=== PATIENT | female | born 1965 | race Two or more races ===

== ENCOUNTER 2017-04-27 16:56 | Emergency (ER) | payer SELFPAY ==
[2017-04-27 18:33] LABS: ABSOLUTE BASOPHILS # (AUTO) 0.1 10^3/uL (0.0-0.2); BASOPHILS % (AUTO) 0.5 % (0-2); HEMATOCRIT 41.6 % (36.0-47.0); HEMOGLOBIN 14.1 g/dL (12.0-15.5); HGB HCT DIFFERENCE 0.7; MEAN CORPUSCULAR HEMOGLOBIN 28.7 pg (27.0-33.4); MEAN CORPUSCULAR HGB CONC 33.8 g/dL (32.0-36.0); MEAN CORPUSCULAR VOLUME 85 fl (80-97); MONOCYTES % (AUTO) 5.3 % (3-13); RED CELL DISTRIBUTION WIDTH 14.1 % (11.5-14.0); SEGMENTED NEUTROPHILS % (AUTO) 83.2 % (42-78)
--- NOTE | 2017-04-27 18:47 | EKG REPORT ---
SEVERITY:- NORMAL ECG - SINUS RHYTHM : Confirmed by: Ned Zamora MD 27-Apr-2017 18:46:55
[2017-04-27 18:50] LABS: ALANINE AMINOTRANSFERASE 28 U/L (9-52); ALBUMIN 4.9 g/dL (3.5-5.0); ALCOHOL < 10 mg/dL (NONE DETECTED); ALKALINE PHOSPHATASE 114 U/L (38-126); ANION GAP 19 (5-19); ASPARTATE AMINO TRANSFERASE 30 U/L (14-36); BILIRUBIN,DIRECT 0.4 mg/dL (0.0-0.4); BILIRUBIN,TOTAL 0.7 mg/dL (0.2-1.3); BLOOD UREA NITROGEN 22 mg/dL (7-20); CALCIUM 11.2 mg/dL (8.4-10.2); CARBON DIOXIDE 20 mmol/L (22-30); CHLORIDE 105 mmol/L (98-107); CREATININE RESULT 0.86 mg/dL (0.52-1.25); GLUCOSE 98 mg/dL (75-110); MAGNESIUM 1.5 mg/dL (1.6-2.3); POTASSIUM 4.2 mmol/L (3.6-5.0); SODIUM 143.8 mmol/L (137-145); TOTAL PROTEIN 8.4 g/dL (6.3-8.2)
[2017-04-27] MEDS ORDERED: HALOPERIDOL 5 MG TABLET PO ONE (18:51)
[2017-04-27] MEDS ORDERED: BENZTROPINE MESYLATE 1 MG TABLET PO ONE (18:52)
--- NOTE | 2017-04-27 19:16 | ER Document Report ---
ED Psych Disorder / Suicide <NILSSTEVEN Rodríguez - Last Filed: 04/28/17 00:51> - General Mode of Arrival: Ambulatory Information source: Patient TRAVEL OUTSIDE OF THE [place] IN LAST 30 DAYS: No - HPI Onset: Just prior to arrival <TREMAYNEDENIPOLO - Last Filed: 04/28/17 14:10> - General Chief Complaint: Psych Problem Stated Complaint: ALTERED MENTAL STATUS Time Seen by Provider: 04/27/17 18:50 Notes: Patient is an IVC'd 52 year old female presenting to the emergency department via EMS for confusion. Patient was found wandering and police were called. Police then proceeded to call EMS. Patient states that she has cancer and only a few days left to live. Patient is clearly disorganized and confused. Patient states that she lives with her son who was just recently deployed. Developmental Mathematics Instructor states that they are unable to understand much due to her current mental state. (RAKEL CASPER) - Related Data Allergies/Adverse Reactions: No Known Allergies Allergy (Unverified 04/28/17 04:05) Past Medical History - General Information source: Patient - Social History Smoking Status: Unknown if Ever Smoked Chew tobacco use (# tins/day): No Frequency of alcohol use: None Drug Abuse: None Family History: None <RAKEL CASPER - Last Filed: 04/28/17 14:10> Review of Systems - Review of Systems Constitutional: No symptoms reported EENT: No symptoms reported Cardiovascular: No symptoms reported Respiratory: No symptoms reported Gastrointestinal: No symptoms reported Genitourinary: No symptoms reported Female Genitourinary: No symptoms reported Musculoskeletal: No symptoms reported Skin: No symptoms reported Hematologic/Lymphatic: No symptoms reported Neurological/Psychological: See HPI, Confusion <RAKEL CASPER - Last Filed: 04/28/17 14:10> Physical Exam - General General appearance: Appears well, Alert In distress: None - HEENT Head: Normocephalic, Atraumatic Eyes: Normal Conjunctiva: Normal Pupils: PERRL - Respiratory Respiratory status: No respiratory distress Breath sounds: Normal - Cardiovascular Rhythm: Regular Heart sounds: Normal auscultation - Back Back: Normal - Extremities General upper extremity: Normal inspection, Normal ROM General lower extremity: Normal inspection, Normal ROM - Neurological Neuro grossly intact: Yes Cognition: Normal Orientation: AAOx4 Faye Coma Scale Eye Opening: Spontaneous [place]aye Coma Scale Verbal: Oriented [place] Coma Scale Motor: Obeys Commands [place] Coma Scale Total: 15 Speech: Normal - Psychological Associated symptoms: Normal affect, Normal mood - Skin Skin Temperature: Warm Skin Moisture: Dry Skin Color: Normal <RAKEL CASPER - Last Filed: 04/28/17 14:10> - Vital signs Vitals: Temp Pulse Resp BP Pulse Ox 98.3 F 98 18 157/86 H 99 04/27/17 18:56 04/27/17 18:56 04/27/17 18:56 04/27/17 18:56 04/27/17 18:56 Course - Laboratory Result Diagrams: 04/27/17 18:10 04/27/17 18:10 - Diagnostic Test Radiology reviewed: Reports reviewed - See the renal stone protocol CT scan report - EKG Interpretation by Mi EKG shows normal: Sinus rhythm, [place], Intervals, QRS Complexes, ST-T Waves Rate: Normal - 92 Rhythm: NSR - Transfer of Care Care transferred to following provider: Dr. Villatoro <STEVEN WRAY - Last Filed: 04/28/17 00:51> - Laboratory Result Diagrams: 04/27/17 18:10 04/27/17 18:10 <RAKEL CASPER - Last Filed: 04/28/17 14:10> - Re-evaluation Re-evalutation: 04/28/17 00:48 The patient was complaining some abdominal and back pain, and was noted to have hematuria so a CT renal scan was done. This showed a 2.8 cm gallstone without signs of inflammation. There were also bilateral renal lesions measuring up to 3.1 cm each. The radiologist reported he could not exclude neoplasm and recommend comparison with prior studies, or contrasted MRI or CT of the kidneys. Due to the acute psychosis and lack of any real past medical history on this patient, will get a CT scan of the brain at this time. (STEVEN WRAY) - Vital Signs Vital signs: Temp Pulse Resp BP Pulse Ox 99.6 F 89 16 146/74 H 96 04/28/17 04:00 04/28/17 04:00 04/28/17 04:00 04/28/17 04:00 04/28/17 04:00 - Laboratory Laboratory results interpreted by me: 04/27/17 04/27/1704/27/17 18:10 18:10 22:30 WBC 18.0 H RDW 14.1 H Seg Neutrophils % 83.2 H Lymphocytes % 11.0 L Absolute Neutrophils 15.0 H Carbon Dioxide 20 L BUN 22 H Calcium 11.2 H Magnesium 1.5 L Total Protein 8.4 H Urine Ketones 20 H - Transfer of Care Notes: 04/28/17 00:51 Patient will need further investigation of her past medical history prior to coming up to this area to live with her son. If unable to obtain prior renal studies, the patient will need contrasted CT or MRI of the kidneys. (STEVEN WRAY) Discharge <STEVEN WRAY - Last Filed: 04/28/17 00:51> <RAKEL CASPER - Last Filed: 04/28/17 14:10> - Discharge Clinical Impression: Manic psychosis, Kidney lesion, [place], bilateral Hematuria Qualifiers: Hematuria type: asymptomatic microscopic Qualified Code(s): R31.21 - Asymptomatic microscopic hematuria Condition: Fair Disposition: PSYCH HOSP/UNIT Scribe Attestation: 04/27/17 19:36 I personally performed the services described in the documentation, reviewed and edited the documentation which was dictated to the scribe in my presence, and it accurately records my words and actions. (STEVEN WRAY) Scribe Documentation - Scribe Written by Natan:: Natan Kirk,04/27/2017 19:26 acting as scribe for :: Nils <RAKEL CASPER - Last Filed: 04/28/17 14:10>
[2017-04-27 22:57] LABS: APPEARANCE,URINE SLIGHTLY-CLOUDY; BILIRUBIN,URINE NEGATIVE (NEGATIVE); GLUCOSE, URINE NEGATIVE (NEGATIVE); KETONES,URINE 20 mg/dL (NEGATIVE); LEUKOCYTE ESTERASE,URINE NEGATIVE (NEGATIVE); NITRITE,URINE NEGATIVE (NEGATIVE); PROTEIN,URINE NEGATIVE (NEGATIVE); URINE SPECIFIC GRAVITY 1.029; UROBILINOGEN,URINE NEGATIVE mg/dL (<2.0)
[2017-04-27 23:07] LABS: URINE BARBITURATES SCREEN NEGATIVE; URINE METHADONE SCREEN NEGATIVE; URINE OPIATES LOW NEGATIVE; URINE PHENCYCLIDINE SCREEN NEGATIVE
[2017-04-27] MEDS ORDERED: ACETAMINOPHEN 325 MG TABLET PO ONE (23:15)
--- NOTE | 2017-04-28 00:34 | RADIOLOGY REPORT (SQ) ---
EXAM DESCRIPTION: CT LTD RENAL STONE PROTOCOL ON COMPLETED DATE/TIME: 04/28/2017 12:19 am REASON FOR STUDY: abd pain, back pain, hematuria COMPARISON: None. TECHNIQUE: CT scan of the abdomen and pelvis performed without intravenous or oral contrast. Images reviewed with lung, soft tissue, and bone windows. Reconstructed coronal and sagittal MPR images revi ewed. All images stored on PACS. All CT scanners at this facility use dose modulation, iterative reconstruction, and/or weight based d osing when appropriate to reduce radiation dose to as low as reasonably achievable (ALARA). [facility]: Dose Right [facility]: CareDose [facility]: Dose Right [facility]: Teradose 4D [facility]: [employer] RADIATION DOSE: Up-to-date CT equipment and radiation dose reduction techniques were employed. CTDIv ol: 10.3 mGy. DLP: 534 mGy-cm.mGy. LIMITATIONS: None. FINDINGS: LOWER CHEST: No significant findings. No nodules or infiltrates. Small coronary arterial calcification. Small hiatal hernia. NON-CONTRASTED LIVER, SPLEEN, ADRENALS: Evaluation limited by lack of IV contrast. No identified sign ificant masses. PANCREAS: No masses. No peripancreatic inflammatory changes. GALLBLADDER: 2.8 cm gallstone. RIGHT KIDNEY AND URETER: Severe atrophy. Indeterminate lesions measure up to 1.6 cm each, not defini tively characterized. LEFT KIDNEY AND URETER: Severe atrophy. Indeterminate lesions measure up to 3.2 cm each not definiti vely characterize. Right pelvic kidney: No complication, no suspicious mass, no hydronephrosis -hydroureter. AORTA AND RETROPERITONEUM: No aneurysm. No retroperitoneal masses or adenopathy. BOWEL AND PERITONEAL CAVITY: No obvious masses or inflammatory changes. No free fluid. Gastric sutur e. APPENDIX: Normal. PELVIS, BLADDER, AND ABDOMINAL WALL:No abnormal masses. No free fluid. Bladder normal. BONES: No significant findings. OTHER: No other significant finding. IMPRESSION: 1. Indeterminate bilateral renal lesions measure up to 3.1 cm each. Cannot exclude kaila plasm. Comparison with prior exams or contrast MRI/ CT of the kidneys recommended. 2. Severe bilat eral renal atrophy. Right pelvic kidney. 3. Cholelithiasis. COMMENT: Quality ID # [id number]: Final reports with documentation of one or more dose reduction techniques (e.g., Automated exposure control, adjustment of the mA and/or kV according to patient size, use of iterative reconstruction technique) TECHNICAL DOCUMENTATION: JOB ID: [id number]- All Rights Reserved
--- NOTE | 2017-04-28 01:46 | RADIOLOGY REPORT (SQ) ---
EXAM DESCRIPTION: CT HEAD WITHOUT COMPLETED DATE/TIME: 04/28/2017 1:13 am REASON FOR STUDY: bilat renal lesions, acutely psychotic COMPARISON: None. TECHNIQUE: Axial images acquired through the brain without intravenous contrast. Images reviewed wi th bone, brain and subdural windows. Images stored on PACS. All CT scanners at this facility use dose modulation, iterative reconstruction, and/or weight based d osing when appropriate to reduce radiation dose to as low as reasonably achievable (ALARA). [facility]: Dose Right [facility]: CareDose [facility]: Dose Right [facility]: Teradose 4D [facility]: [employer] RADIATION DOSE: Up-to-date CT equipment and radiation dose reduction techniques were employed. CTDIv ol: 64.6 mGy. DLP: 1163 mGy-cm. mGy. LIMITATIONS: None. FINDINGS: VENTRICLES: Normal size and contour. CEREBRUM: No masses. No hemorrhage. No midline shift. No evidence for acute infarction. Normal gra y/white matter differentiation. No areas of low density in the white matter. CEREBELLUM: No masses. No hemorrhage. No alteration of density. No evidence for acute infarction. EXTRAAXIAL SPACES: No fluid collections. No masses. Atherosclerosis. ORBITS AND GLOBE: No intra- or extraconal masses. Normal contour of globe without masses. CALVARIUM: No fracture. PARANASAL SINUSES: No fluid or mucosal thickening. SOFT TISSUES: No mass or hematoma. OTHER: No other significant finding. IMPRESSION: No acute findings. Atherosclerosis. EVIDENCE OF ACUTE STROKE: NO. COMMENT: Quality ID # [id number]: Final reports with documentation of one or more dose reduction techniques (e.g., Automated exposure control, adjustment of the mA and/or kV according to patient size, use of iterative reconstruction technique) TECHNICAL DOCUMENTATION: JOB ID: [id number] [employer]- All Rights Reserved
[2017-04-28] MEDS ORDERED: HALOPERIDOL LACTATE INJ 5 MG/1 ML VIAL IV ONE (06:11)
[2017-04-28] MEDS ORDERED: DIPHENHYDRAMINE HCL 50 MG/ML VIAL IV ONE (06:12)
[2017-04-28] MEDS ORDERED: CLONIDINE HCL 0.1 MG TABLET PO PRN (09:52)
[2017-04-28] MEDS ORDERED: HALOPERIDOL 5 MG TABLET PO SCH (10:00)
[2017-04-28] MEDS: DIVALPROEX SODIUM 250 MG TAB.SR.24H PO SCH ×2 (10:16→18:09)
[2017-04-28] MEDS: BUSPIRONE HCL 10 MG TABLET PO SCH ×2 (10:16→18:10)
[2017-04-28] MEDS: BENZTROPINE MESYLATE 1 MG TABLET PO SCH (10:16)
--- NOTE | 2017-04-28 10:42 | ER Document Report ---
Doctor's Note Notes: 04/28/17 10:41 This is a 43-year-old female patient with prior history of kidney transplant. Reportedly stopped taking her rejection medications several days ago. Has depression. Has social issues. Please see previous providers note is including mental health note. Will start her on different medications. It is possible the patient will need to be admitted. Will review labs and reassess. 04/28/17 10:53 Consulted with the hospitalist. Understands that patient has some significant issues which need to be addressed. If the core driller is comfortable consulting he may consider admitting her for acute delirium, leukocytosis and restarting of her rejection medications. Will consult with core driller at this time. 04/28/17 11:55 Did speak with the core driller, Dr. Mercado who is more than happy to consult if needed. Consulted the hospitalist. She (Dr. Golden) does not feel patient needs to be admitted at this time. I am asking for medicine consult then since she can't be admitted. She needs an division sergeant or someone specializing in the management of these medications for kidney rejection to take ownership in her medication prescriptions. Will attempt to get all the medications from her previous pharmacy. Awaiting consult by the division sergeant at this time. I am also repeating the CBC and the chemistry 04/28/17 12:36
[2017-04-28 17:48] LABS: HEMATOCRIT 39.2 % (36.0-47.0); HEMOGLOBIN 13.2 g/dL (12.0-15.5); HGB HCT DIFFERENCE 0.4; MEAN CORPUSCULAR HEMOGLOBIN 28.7 pg (27.0-33.4); MEAN CORPUSCULAR HGB CONC 33.7 g/dL (32.0-36.0); MEAN CORPUSCULAR VOLUME 85 fl (80-97); RED BLOOD COUNT 4.61 10^6/uL (3.72-5.28); RED CELL DISTRIBUTION WIDTH 13.6 % (11.5-14.0); WHITE BLOOD COUNT 16.3 10^3/uL (4.0-10.5)
[2017-04-28 17:57] LABS: ANION GAP 14 (5-19); BLOOD UREA NITROGEN 10 mg/dL (7-20); CALCIUM 10.8 mg/dL (8.4-10.2); CARBON DIOXIDE 22 mmol/L (22-30); CHLORIDE 105 mmol/L (98-107); CREATININE RESULT 0.67 mg/dL (0.52-1.25); GLUCOSE 166 mg/dL (75-110); POTASSIUM 3.8 mmol/L (3.6-5.0); SODIUM 140.6 mmol/L (137-145)
--- NOTE | 2017-04-29 01:51 | PDOC CONSULTATION ---
Consultation Consult Date: 04/28/17 Attending physician:: PRASANNA BOURNE Consult reason:: Altered mental status History of Present Illness Admission Date/PCP: Consult date April 28, 2017 History of Present Illness: AMAURY DROADO is a 52 year old female who was brought to ED via ambulance for the purpose to be evaluated since was found wandering down the streets in her neighborhood. Patient states that she used to live in [place] until recently. She sold her house and moved to this area to be with her son. She spent a couple of days in a hotel and has been in her son's house for the past 3 days. Her son had been deployed and was recently taken by the police for an unknown reason. She has a history of kidney transplant but is not aware what precipitated for her to undergo surgery. She has not been taking her regular medications for the past couple of days. She does not have a local doctor yet but has enough medications to last 2 weeks. She was seen at a local clinic and was evaluated. After the exams she was told that has cancer all over her body and that she is expected to soon. Her daughter was with her during those visits. She denies having been wandering but that she likes to walk and that appears that the people in this area does like to do that. Patient denies suicidal or homicidal thoughts. Past Medical History Cardiac Medical History: Reports: Coronary Artery Disease, Hypertension Denies: Congestive Heart Failure Pulmonary Medical History: Reports: None EENT Medical History: Reports: None Neurological Medical History: Reports: None Endocrine Medical History: Reports: None Renal/ Medical History: Reports: Chronic Kidney Disease Malignancy Medical History: Reports: Other Malignancy History Note: claims metastatic cancer with unknown source Past Surgical History Past Surgical History: Reports: Other - kidney transplant Social History Information Source: Patient Smoking Status: Never Smoker Frequency of Alcohol Use: None Drugs: None Family History Family History: Reviewed & Not Pertinent. denies: None Parental Family History Reviewed: Yes Children Family History Reviewed: Yes Sibling(s) Family History Reviewed.: Yes Medication/Allergy Allergies/Adverse Reactions: No Known Allergies Allergy (Unverified 04/28/17 04:05) Review of Systems Constitutional: PRESENT: as per HPI Eyes: ABSENT: visual disturbances Ears: ABSENT: hearing changes Cardiovascular: ABSENT: edema, orthropnea, palpitations Respiratory: ABSENT: cough, dyspnea Gastrointestinal: ABSENT: nausea, vomiting Genitourinary: ABSENT: dysuria, hematuria Musculoskeletal: ABSENT: deformity, joint swelling Neurological: ABSENT: focal weakness Psychiatric: ABSENT: hallucinations, homidical ideation, suicidal ideation Physical Exam Vital Signs: Temp Pulse Resp BP Pulse Ox 98.9 F 91 20 138/75 H 96 04/28/17 19:15 04/28/17 19:15 04/28/17 19:15 04/28/17 19:15 04/28/17 19:15 General appearance: PRESENT: no acute distress, cooperative Head exam: PRESENT: atraumatic, normocephalic Eye exam: PRESENT: EOMI, PERRLA Mouth exam: PRESENT: moist, neck supple Neck exam: PRESENT: full ROM. ABSENT: JVD, lymphadenopathy, meningismus, tenderness, thyromegaly Respiratory exam: PRESENT: clear to auscultation darinel Cardiovascular exam: PRESENT: RRR. ABSENT: diastolic murmur, systolic murmur Vascular exam: PRESENT: normal capillary refill GI/Abdominal exam: PRESENT: normal bowel sounds, soft. ABSENT: organolmegaly, tenderness Extremities exam: PRESENT: full ROM. ABSENT: clubbing, joint swelling, pedal edema Musculoskeletal exam: PRESENT: ambulatory Neurological exam: PRESENT: alert, awake, oriented to person, oriented to place , oriented to situation Psychiatric exam: PRESENT: appropriate affect, normal mood Skin exam: PRESENT: intact, normal color Results Laboratory Results: 04/28/17 17:17 04/28/17 17:17 04/28/17 04/28/17 17:17 17:17 WBC 16.3 H RBC 4.61 Hgb 13.2 Hct 39.2 MCV 85 MCH 28.7 MCHC 33.7 RDW 13.6 Plt Count 219 Sodium 140.6 Potassium 3.8 Chloride 105 Carbon Dioxide 22 Anion Gap 14 BUN 10 Creatinine 0.67 Est GFR ( Amer) > 60 Est GFR (Non-Af Amer) > 60 Glucose 166 H Calcium 10.8 H Impressions: Limited or Localized CT 04/27/17 23:15 IMPRESSION: 1. Indeterminate bilateral renal lesions measure up to 3.1 cm each. Cannot exclude neoplasm. Comparison with prior exams or contrast MRI/ CT of the kidneys recommended. 2. Severe bilateral renal atrophy. Right pelvic kidney. 3. Cholelithiasis. Head CT 04/28/17 00:46 IMPRESSION: No acute findings. Atherosclerosis. EVIDENCE OF ACUTE STROKE: NO. Assessment & Plan - Diagnosis (1) Leukocytosis Is this a current diagnosis for this admission?: Yes Plan: Noted improvement on counts since initially seen in ED. History and review of symptoms not worrisome. In my opinion her presentation does not warrant admission to follow up an abnormal lab value (2) Hypomagnesemia syndrome Plan: Recommend to replace while in ED and awaiting disposition (3) HTN (hypertension) Qualifiers: Hypertension type: essential hypertension Qualified Code(s): I10 - Essential (primary) hypertension Is this a current diagnosis for this admission?: Yes Plan: recommend to restart outpatient medications (4) Status post kidney transplant Is this a current diagnosis for this admission?: Yes Plan: Recommend to restart anti rejections drugs (5) Altered mental status, unspecified Qualifiers: Altered mental status type: unspecified Qualified Code(s): R41.82 - Altered mental status, unspecified Is this a current diagnosis for this admission?: Yes Plan: At the time of my evaluation patient answers appropriately. I had communicated with her in [place] at all time. Recommend for case management to get involved to assist with disposition back home. I do not think she will be a good candidate for psychiatric commitment since not suicidal of homicidal. I do not think patient will benefit from admission to the hospital since minor blood work abnormalities can be easily corrected in ED - Time Time Spent: 30 to 50 Minutes Medications reviewed and adjusted accordingly: No Anticipated discharge: Home Within: within 48 hours
[2017-04-29] MEDS: BUSPIRONE HCL 10 MG TABLET PO SCH ×2 (09:31→18:15)
[2017-04-29] MEDS: BENZTROPINE MESYLATE 1 MG TABLET PO SCH (09:31)
[2017-04-29] MEDS: DIVALPROEX SODIUM 250 MG TAB.SR.24H PO SCH ×2 (09:31→18:15)
--- NOTE | 2017-04-29 14:11 | RADIOLOGY REPORT (SQ) ---
EXAM DESCRIPTION: U/S RETROPERITON (RENAL/AORTA) COMPLETED DATE/TIME: 04/29/2017 1:33 pm REASON FOR STUDY: attn: [place] kidney cysts COMPARISON: CT abdomen pelvis 04/28/2017 TECHNIQUE: Dynamic and static grayscale images acquired of the kidneys and bladder and recorded on P ACS. Additional selected color Doppler and spectral images recorded. LIMITATIONS: None. FINDINGS: Patient has a right lower quadrant transplant kidney, which is 11.1 cm in length, with nor mal cortical thickness and echogenicity. No hydronephrosis. Normal right lower quadrant transplant kidney arterial Doppler, with normal velocities and spectral waveforms. Both ruby kidneys are small and diffusely echogenic. The right ruby kidney is 7.3 cm size, with multiple anechoic cysts less than 2 cm in size. These cysts are hyperdense on CT from hemorrhage or proteinaceous material. No worrisome ultrasound featur es. The left ruby kidney measures 6.6 cm in size, with multiple anechoic less than 3 cm in size. The c ysts are hyperdense on CT from hemorrhage or proteinaceous material. No worrisome ultrasound feature s. Urinary bladder is unremarkable. Incidental finding of a 2.5 cm shadowing stone in the gallbladder IMPRESSION: Normal right lower quadrant transplant kidney. Tiny ruby kidneys bilaterally with multiple cysts. TECHNICAL DOCUMENTATION: JOB ID: [id number] [employer]- All Rights Reserved
[2017-04-29] MEDS ORDERED: FUROSEMIDE 40 MG TABLET PO PRN (15:13)
[2017-04-29] MEDS ORDERED: DAPSONE 25 MG TABLET PO SCH (15:15)
[2017-04-29] MEDS ORDERED: (PENDING PHARMACY ID) (Mycophenolate Sodium [Mycophenolic Acid] 360 MG) PO SCH (18:00)
[2017-04-29] MEDS ORDERED: MYCOPHENOLATE SODIUM 360 MG PO SCH (18:00)
[2017-04-29] MEDS ORDERED: (PENDING PHARMACY ID) (Carvedilol [Carvedilol] 12.5 MG) PO SCH (18:00)
--- NOTE | 2017-04-29 19:05 | ER Document Report ---
Doctor's Note Notes: 04/29/17 18:56 Have spent considerable time today sorting out patient's medical history and trying to establish what is wrong with her and how we can disposition her. I spoke to the daughter in [place] at [phone] around midday. Daughter says the patient moved here to [place] about a month ago and bought a house here. Her son apparently lives with her. He is in the and we are not sure if but we think he may be deployed at this time. We have not been able to contact him. Daughter says the patient has been admitted to psychiatric hospitals of 3 times in the last few months, the last admission being in January of this year. She was admitted for depression and psychosis. Daughter does not know if patient takes any medications for these conditions. Patient told someone who recorded in the chart that she has "cancer all over". Daughter says she knows nothing about any cancer and does not think that is true. Called telephone number that we obtain for the son, there was no answer but I left a message asking him to call me here at the hospital. I have not heard from him. This evening, I got a call back from the patient's former doctor in [place], a Dr. Guardado at [phone] and he went over the patient's past history and he to says he is never heard of her having any cancer. Patient is a renal transplant patient, 5 or 6 years ago. 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 Patient is . He last saw this patient in August 2016 and she was doing fine. He does not know of any psychiatric disease. Does not know of any cancer. Patient's noncontrasted CT of the abdomen looking for stones from when she was admitted yesterday, showed lesions of the kidneys, worrisome for neoplasm. I spoke with Dr. Ludwig and she recommended we do ultrasounds, which were done and she says that the lesions on the kidneys are cysts. Therefore, there is no evidence in our testing that the patient has any cancer either. We were able to locate her antirejection medications and she is to start them this evening. I will be returning to the same shift tomorrow and we will work further on the disposition of this patient. We were not able to reach the son, but were able to reach his commanding officer who says that we can likely get up with the son tomorrow. Denilson Givens MD
[2017-04-29] MEDS: MYCOPHENOLATE SODIUM 180 MG PO SCH (21:20)
[2017-04-29] MEDS: CLONIDINE HCL 0.1 MG TABLET PO SCH (21:21)
[2017-04-29] MEDS: CARVEDILOL 12.5 MG TABLET PO SCH (21:21)
[2017-04-29] MEDS: NIFEDIPINE 30 MG TAB.ER.24 PO SCH (21:22)
[2017-04-29] MEDS: TACROLIMUS ANHYDROUS 1 MG CAPSULE PO SCH (21:23)
[2017-04-29] MEDS ORDERED: (PENDING PHARMACY ID) (Nifedipine [Nifedipine Er] 90 MG) PO SCH (22:00)
[2017-04-30] MEDS ORDERED: METOCLOPRAMIDE HCL ORAL SOLN 10 MG/10 ML UDCUP PO ONE (00:21)
[2017-04-30] MEDS ORDERED: MAG HYDROX/AL HYDROX/SIMETH SUSP 30 ML UDCUP PO ONE (00:21)
[2017-04-30] MEDS ORDERED: LIDOCAINE 2% VISCOUS SOLN 20 ML UDCUP PO ONE (00:21)
[2017-04-30] MEDS ORDERED: LISINOPRIL 5 MG TABLET PO SCH (08:00)
[2017-04-30] MEDS: CLONIDINE HCL 0.1 MG TABLET PO SCH ×3 (08:24→22:13)
[2017-04-30] MEDS: NIFEDIPINE 30 MG TAB.ER.24 PO SCH (09:00)
[2017-04-30] MEDS: TACROLIMUS ANHYDROUS 1 MG CAPSULE PO SCH ×2 (09:01→22:12)
[2017-04-30] MEDS: BUSPIRONE HCL 10 MG TABLET PO SCH (09:02)
[2017-04-30] MEDS: DIVALPROEX SODIUM 250 MG TAB.SR.24H PO SCH (09:03)
[2017-04-30] MEDS: LANSOPRAZOLE 30 MG TAB.RAP.DR PO SCH (09:03)
[2017-04-30] MEDS: CARVEDILOL 12.5 MG TABLET PO SCH ×2 (09:03→22:13)
[2017-04-30] MEDS: MYCOPHENOLATE SODIUM 180 MG PO SCH ×2 (09:05→22:12)
[2017-04-30] MEDS ORDERED: (PENDING PHARMACY ID) (Esomeprazole Magnesium [Esomeprazole Magnesium] 40 MG) PO SCH (10:00)
--- NOTE | 2017-04-30 10:36 | ER Document Report ---
Doctor's Note Notes: 04/30/17 10:34 Rounds: Chart reviewed and patient interviewed. Patient seems to be better than yesterday. Conversation is more focused and appropriate. Bargained with patient to have her take the Depakote that has been ordered. I agreed to drop her morning dose of nifedipine 90 mg XR which she says makes her sleepy and she only wants to take it at nighttime, which I have now ordered that way. We are still looking at placement of this patient because we have found out that her son, who lives with her, is out on deployment and will be out for the next 4-6 weeks. We do not feel the patient is capable functioning on her own, independently, at this time. Failure pneumonia vital signs have remained stable. Her blood pressure is doing very well. No new labs to report. Patient appears to be medically stable for transfer or discharge. Denilson Givens MD
[2017-04-30 13:46] LABS: ABSOLUTE BASOPHILS # (AUTO) 0.1 10^3/uL (0.0-0.2); ABSOLUTE EOSINOPHILS # (AUTO) 0.1 10^3/uL (0.0-0.6); ABSOLUTE LYMPHOCYTES (AUTO) 1.7 10^3/uL (0.5-4.7); ABSOLUTE NEUT (AUTO) 9.9 10^3/uL (1.7-8.2); BASOPHILS % (AUTO) 0.4 % (0-2); HEMATOCRIT 38.4 % (36.0-47.0); HEMOGLOBIN 12.9 g/dL (12.0-15.5); HGB HCT DIFFERENCE 0.3; LYMPHOCYTES % (AUTO) 13.6 % (13-45); MEAN CORPUSCULAR HEMOGLOBIN 28.9 pg (27.0-33.4); MEAN CORPUSCULAR HGB CONC 33.5 g/dL (32.0-36.0); MEAN CORPUSCULAR VOLUME 86 fl (80-97); MONOCYTES % (AUTO) 7.7 % (3-13); RED BLOOD COUNT 4.46 10^6/uL (3.72-5.28); RED CELL DISTRIBUTION WIDTH 13.9 % (11.5-14.0); SEGMENTED NEUTROPHILS % (AUTO) 77.3 % (42-78); WHITE BLOOD COUNT 12.8 10^3/uL (4.0-10.5)
[2017-04-30] MEDS ORDERED: LACTULOSE SYRUP 20 GM/30 ML UDCUP PO ONE (15:47)
[2017-04-30] MEDS: HALOPERIDOL 5 MG TABLET PO SCH (18:38)
[2017-04-30] MEDS: RIFAXIMIN 550 MG TABLET PO SCH (18:38)
[2017-04-30] MEDS ORDERED: NIFEDIPINE 30 MG TAB.ER.24 PO SCH (22:00)
[2017-05-01] MEDS ORDERED: LISINOPRIL 10 MG TABLET PO SCH (08:00)
[2017-05-01] MEDS: TACROLIMUS ANHYDROUS 1 MG CAPSULE PO SCH (09:22)
[2017-05-01] MEDS: LANSOPRAZOLE 30 MG TAB.RAP.DR PO SCH (09:23)
[2017-05-01] MEDS: BENZTROPINE MESYLATE 1 MG TABLET PO SCH (09:23)
[2017-05-01] MEDS: BUSPIRONE HCL 10 MG TABLET PO SCH (09:23)
[2017-05-01] MEDS: RIFAXIMIN 550 MG TABLET PO SCH (09:23)
[2017-05-01] MEDS: HALOPERIDOL 5 MG TABLET PO SCH (09:24)
[2017-05-01] MEDS: CARVEDILOL 12.5 MG TABLET PO SCH (09:24)
[2017-05-01] MEDS: MYCOPHENOLATE SODIUM 180 MG PO SCH (09:30)
--- NOTE | 2017-05-01 10:44 | ER Document Report ---
Doctor's Note Notes: 05/01/17 10:55 This is a 52-year-old female patient here in the emergency department for several days. Significant medical is issues including kidney transplant on rejection medication. The patient was found to have elevated ammonia level yesterday. Was given lactulose. Patient states that has had several episodes of diarrhea today. Patient is complaining that it is always noisy and loud here. It is definitely not helping her mental status. Is wondering why she cannot go to a quiet place until she finds a place to go. Apparently we are continuing to try and find her son who can help take care of her at home. At this time if her ammonia level is elevated again we will then require medicine consult. Patient may need to be admitted based on elevated ammonia level. We will continue to follow today. 05/01/17 13:30 Repeat CBC and chemistry unremarkable. Ammonia level now back down to normal.
--- NOTE | 2017-05-01 11:31 | PSYCHOLOGICAL NOTE ---
Psych Note - Psych Note Psych Note: Patient is an IVC'd 52 year old female presenting to the emergency department via EMS for confusion. Patient was found wandering and police were called. Police then proceeded to call EMS. Patient states that she has cancer and only a few days left to live. Patient is clearly disorganized and confused. Patient states that she lives with her son who was just recently deployed. Escapement Maker states that they are unable to understand much due to her current mental state. Clinician conducted checking with patient: Clinician spoke with the patient using Brayan because of patient's refusal to explain in [place]. It is noted the patient has had no difficulties previously communicating in [place]. Patient denies she defecated in her neighbors home stating that he has many dogs. She continued to state that she did defecate in the hallway between her bathroom and living room but she had put something underneath it. She states she did this because she was "scared" because they are going to kill her. When asked to explain who "they are" patient stated she does not know because she hears them talking through the reveles; there is no window so she cannot see who it is. Patient states that she is scared and feels that her ex- is 1 of the people that will kill her. When asked about the patient's daughter disclosing previous mental health inpatient treatments patient became upset stating that her daughter was the reason she was inpatient. Patient caused and called her daughter many names stating that her daughter needed to be the inpatient not her. She did disclose that she was inpatient at [facility] in [place]. She disclose she was only there 3 days and was released because she does not have any mental health concerns. 298.9 (F29) unspecified schizophrenia or other psychotic disorder Impression\\plan: Patient is recommended to continue under IVC. Patient report of what occurred is in direct conflict of reports from EMS and police. Patient discloses auditory hallucinations and hearing people say they are going to kill her. Is recommended patient receive medications for another 24 hours to ensure therapeutic levels. Dr. Arechiga was consulted and the care and management of this patient; attending physician in agreement with augmentations and disposition.
--- NOTE | 2017-05-01 11:42 | PSYCHOLOGICAL NOTE ---
Psych Note - Psych Note Psych Note: Patient is an IVC'd 52 year old female presenting to the emergency department via EMS for confusion. Patient was found wandering and police were called. Police then proceeded to call EMS. Patient states that she has cancer and only a few days left to live. Patient is clearly disorganized and confused. Patient states that she lives with her son who was just recently deployed. Repairer Screen Crusher states that they are unable to understand much due to her current mental state. Clinician conducted checking with patient: Clinician spoke with patient in regards to being therapeutic with her medication and looking at discharge today. Patient became agitated stating that she could not go home because it was not good for her; "I do not want to go home...I need to stay... It is not good for me there." Patient was unable to explain to clinician why he would not be good for her. It was explained that the hospital would be setting up [facility]" to come and check on her to make sure that she was doing all right. Patient then stated "I do not have clothes.. Or even keys." Clinician asked where the patient's keys were to her home and the patient disclosed "they are in a bag in my room" in the patient's home. Patient then stated that she [place] go straight to the airport if we discharged her. Patient again started to state "I have Medicaid... I have Medicare.... I need 24-hour care." Clinician explained that if she felt she needed assisted living that option could be explored. She stated she does not know what is living is, clinician explained it would be a facility; patient refused to further engage with clinician. 298.9 (F29) unspecified schizophrenia or other psychotic disorder Impression\\plan: Patient is recommended for rescind of IVC and is considered psychiatrically clear. Patient no longer meets IVC criteria per [place] GS 122C. Patient is therapeutic on her medications at this time and is demonstrating behavior congruent with attempting to achieve secondary gain. Patient states she is afraid to go home and wants 24-hour care. When patient is offered options/ assistance, she was unwilling to engage other than stating that she needed 24-hour care because she has Medicaid and Medicare. Dr. Arecihga was consulted and the care and management of this patient; attending physician in agreement with augmentations and disposition.
--- NOTE | 2017-05-01 11:51 | PSYCHOLOGICAL NOTE ---
Psych Note - Psych Note Psych Note: Patient is an IVC'd 52 year old female presenting to the emergency department via EMS for confusion. Patient was found wandering and police were called. Police then proceeded to call EMS. Patient states that she has cancer and only a few days left to live. Patient is clearly disorganized and confused. Patient states that she lives with her son who was just recently deployed. Internet Researcher states that they are unable to understand much due to her current mental state. Clinician conducted checking with patient: Patient discloses concerns and confusion on questions clinician had in regards to previous evenings events. Patient reports the neighbors keep calling the braider tender on her and all she was doing was walking. Patient denies any odd behaviors. Clinician notes patient patient has been engaged with local authorities multiple times to include last evening. Last night they had to come out a second time because after leaving she went next door to her neighbor' s home, while they were gone, and defecated on the floor. 298.9 (F29) unspecified schizophrenia or other psychotic disorder Impression\plan: Patient is recommended to continue under IVC. Patient report of what occurred is in direct conflict of reports from EMS and police. At this time it is unclear if patient's presenting psychosis is resulting from mental health or physiological. Patient has medical diagnoses to include a kidney transplant. Dr. Arechiga was consulted and the care and management of this patient; attending physician in agreement with augmentations and disposition.
[2017-05-01 11:52] LABS: ABSOLUTE EOSINOPHILS # (AUTO) 0.2 10^3/uL (0.0-0.6); ABSOLUTE LYMPHOCYTES (AUTO) 1.5 10^3/uL (0.5-4.7); ABSOLUTE MONOCYTES (AUTO) 0.8 10^3/uL (0.1-1.4); ABSOLUTE NEUT (AUTO) 6.2 10^3/uL (1.7-8.2); BASOPHILS % (AUTO) 0.5 % (0-2); EOSINOPHILS % (AUTO) 1.9 % (0-6); HEMATOCRIT 37.6 % (36.0-47.0); HEMOGLOBIN 12.9 g/dL (12.0-15.5); HGB HCT DIFFERENCE 1.1; LYMPHOCYTES % (AUTO) 17.6 % (13-45); MEAN CORPUSCULAR HEMOGLOBIN 29.5 pg (27.0-33.4); MEAN CORPUSCULAR HGB CONC 34.4 g/dL (32.0-36.0); MEAN CORPUSCULAR VOLUME 86 fl (80-97); MONOCYTES % (AUTO) 9.2 % (3-13); RED BLOOD COUNT 4.38 10^6/uL (3.72-5.28); RED CELL DISTRIBUTION WIDTH 13.9 % (11.5-14.0); SEGMENTED NEUTROPHILS % (AUTO) 70.8 % (42-78); WHITE BLOOD COUNT 8.8 10^3/uL (4.0-10.5)
[2017-05-01 12:19] LABS: ALANINE AMINOTRANSFERASE 23 U/L (9-52); ALBUMIN 3.9 g/dL (3.5-5.0); ALKALINE PHOSPHATASE 89 U/L (38-126); ANION GAP 14 (5-19); ASPARTATE AMINO TRANSFERASE 16 U/L (14-36); BILIRUBIN,DIRECT 0.3 mg/dL (0.0-0.4); BILIRUBIN,TOTAL 0.3 mg/dL (0.2-1.3); BLOOD UREA NITROGEN 14 mg/dL (7-20); CALCIUM 10.8 mg/dL (8.4-10.2); CARBON DIOXIDE 23 mmol/L (22-30); CHLORIDE 106 mmol/L (98-107); CREATININE RESULT 0.72 mg/dL (0.52-1.25); GLUCOSE 109 mg/dL (75-110); POTASSIUM 4.5 mmol/L (3.6-5.0); SODIUM 142.6 mmol/L (137-145); TOTAL PROTEIN 6.3 g/dL (6.3-8.2)
[2017-05-01 14:36] VITALS: BP 108/61
[2017-05-02] MEDS ORDERED: LANSOPRAZOLE 30 MG TAB.RAP.DR PO SCH (06:00)
== END 2017-05-01 14:58 ==
LOC: ER 16:56
DX: F30.2 Manic episode, severe with psychotic symptoms (principal); R31.21 Asymptomatic microscopic hematuria; K80.20 Calculus of gallbladder without cholecystitis without obstruction; R19.7 Diarrhea, unspecified; Q61.02 Congenital multiple renal cysts; Z94.0 Kidney transplant status; Z79.899 Other long term (current) drug therapy; D72.829 Elevated white blood cell count, unspecified; R10.9 Unspecified abdominal pain; M54.9 Dorsalgia, unspecified; Z91.14 Patient's other noncompliance with medication regimen
CPT/HCPCS: 93005; 99285; 96374; 96375; 36415; 80307 ×2; 82140; 83735; 85025; 85027; 80048; 80053; 81001; 76380; 93010; J3490 ×3; J7507 ×3; A9270 ×2

== ENCOUNTER 2017-05-09 20:55 | Inpatient (IN) | payer MEDICARE ==
--- NOTE | 2017-05-09 21:02 | ER Document Report ---
ED General - General Information source: Patient TRAVEL OUTSIDE OF THE [place] IN LAST 30 DAYS: No - HPI Onset: Just prior to arrival <RAKEL CASPER - Last Filed: 05/10/17 02:10> <STEVEN WRAY - Last Filed: 05/10/17 06:09> <ZINADILSHAD - Last Filed: 05/10/17 08:15> - General Stated Complaint: PSYCH PROBLEM Time Seen by Provider: 05/09/17 20:58 Notes: Patient is a 52 year old female who presents to the emergency department via EMS complaining of abdominal pain. Upon arrival to the emergency department patient was placed on restraints due to aggressive behavior. Patient is not willing to listen to commands. After giving patient a dose of Haldol, patient calmed down and was willing to stay in room. After introducing self and approaching patient, patient turned her head and was not willing to talk. When performing physical exam, patient began to grab at hand. Informed patient that she could be placed back on restraints. Patient understands and speaks Turkish although refuses to do so at times to which she speaks Mozambican. Patient is currently prescribed Haldol. Patient recently had a kidney transplant. Patient was previously presented to the emergency department with IVC papers earlier this month. She was found wandering her neighbor backyard. Patient stated that she lived with her son who was recently deployed. (RAKEL CASPER) This 48-year-old female patient comes emergency room after calling 911 complaining about her toe. Later she complained of abdominal pain. He had also related that there were people on the roof of her house and she did not want to stay in there. This similar to her psychotic hallucinations 2 weeks ago. Additionally, when seen 2 weeks ago she stated she only had a few hours to live due to cancer throughout her body. She was under IVC paperwork from 04/27/2017 through 05/01/2017. During that time she was stabilized on antipsychotic medication. She was discharged with a seven-day prescription for Haldol and Cogentin. It is unknown if she ever filled these prescriptions and took this medication. It is also unknown if she ever got outpatient follow-up. The prescription bottles brought in by EMS showed, based on pill count that she is probably not been taking her blood pressure medication or her antirejection medication. 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 When I first entered the room, she was pacing the floor, looking at the Brayan machine and holding her abdomen complaining of abdominal pain. The nurse reported EMS had mentioned the patient complained of chest pain. She was initially combative enough that she had to be physically restrained. She refused to take any medication orally, so she was given IM injections of Haldol and Cogentin. Due to the history of hypertension, not taking her medications, and possible complaint of chest pain, CK and troponin were ordered. The troponin came back elevated at 0.137 It was repeated 2 and half hours later and came back at 1.29 There are no comparison troponins in the computer to check a baseline. (STEVEN WRAY) - Related Data Allergies/Adverse Reactions: No Known Allergies Allergy (Verified 04/29/17 11:47) Home Medications: Current Home Medications Carvedilol [Coreg] 12.5 mg PO BID 05/10/17 [History] Dapsone 100 mg PO Q7D 05/10/17 [History] Erythromycin Base/Ethanol [Erythromycin 2% Gel] 30 gm TP BID 05/10/17 [History] Esomeprazole Mag Trihydrate [Nexium] 40 mg PO DAILY 05/10/17 [History] Furosemide [Lasix 40 mg Tablet] 40 mg PO QAMP PRN 05/10/17 [History] Lisinopril 10 mg PO DAILY 05/10/17 [History] Mycophenolate Sodium [Mycophenolic Acid] 360 mg PO BID 05/10/17 [History] Nifedipine [Nifedipine ER] 90 mg PO DAILY 05/10/17 [History] Tacrolimus [Prograf] 2 mg PO BID 05/10/17 [History] Past Medical History - General Information source: Patient Cannot obtain history due to: Uncooperative - Social History Family History: Reviewed & Not Pertinent - Past Medical History Cardiac Medical History: Reports: Hx Coronary Artery Disease, Hx Hypertension Past Surgical History: Reports: Other - kidney transplant - Immunizations Hx Diphtheria, Pertussis, Tetanus Vaccination: - unknown <RAKEL CASPER - Last Filed: 05/10/17 02:10> - Social History Smoking Status: Smoker,Current Status Unk Cigarette use (# per day): No Chew tobacco use (# tins/day): No Smoking Education Provided: No Frequency of alcohol use: None Drug Abuse: None Occupation: unemployed Lives with: Other - Patient lives with her son who is possibly deployed at this time Pulmonary Medical History: Reports: None Endocrine Medical History: Reports: None Renal/ Medical History: Reports: Other - Bilateral atrophied kidneys with a renal transplant GI Medical History: Reports: None Musculoskeltal Medical History: Reports None Psychiatric Medical History: Reports: Hx Schizoaffective Disorder Past Surgical History: Reports: Other - Kidney transplant probably in 2010 and [facility] <STEVEN WRAY - Last Filed: 05/10/17 06:09> Review of Systems - Review of Systems -: Yes ROS unobtainable due to patient's medical condition - Patient is uncooperative. Constitutional: No symptoms reported EENT: No symptoms reported Respiratory: No symptoms reported Gastrointestinal: See HPI, Abdominal pain Genitourinary: No symptoms reported Female Genitourinary: No symptoms reported Musculoskeletal: No symptoms reported Skin: No symptoms reported Hematologic/Lymphatic: No symptoms reported Neurological/Psychological: No symptoms reported -: Yes All other systems reviewed and negative <RAKEL CASPER - Last Filed: 05/10/17 02:10> Physical Exam - General General appearance: Appears well, Alert In distress: None - HEENT Head: Normocephalic, Atraumatic Pupils: PERRL - Respiratory Respiratory status: No respiratory distress Breath sounds: Normal - Cardiovascular Rhythm: Regular Heart sounds: Normal auscultation Murmur: No Friction rub: No Gallop: None auscultated - Abdominal Inspection: Normal, Striae Bowel sounds: Normal Tenderness: Nontender Organomegaly: No organomegaly - Extremities General upper extremity: Normal inspection, Normal ROM General lower extremity: Normal inspection, Normal ROM - Neurological Cognition: Confused - Psychological Associated symptoms: Aggressive, Other - Patient is uncooperative during - Skin Skin Temperature: Warm Skin Moisture: Dry <RAKEL CASPER - Last Filed: 05/10/17 02:10> - Vital signs Vitals: Temp Pulse Resp BP Pulse Ox 98.3 F 129 H 24 H 152/106 H 95 05/09/17 21:26 05/09/17 21:26 05/09/17 21:26 05/09/17 21:26 05/09/17 21:26 Course - Laboratory Result Diagrams: 05/09/17 22:24 05/09/17 22:24 <RAKEL CASPER - Last Filed: 05/10/17 02:10> - Laboratory Result Diagrams: 05/09/17 22:24 05/09/17 22:24 - EKG Interpretation by Me EKG shows normal: Sinus rhythm, N[place], Intervals, QRS Complexes, ST-T Waves Rate: Tachycardia - 108 When compared to previous EKG there are: No significant change - Consults Dr. Knight Time consulted: 06:05 Consulted provider: other - fresh food manager at [facility]. Does not feel that this represents acute RI. He requests that with the most recent troponin that was ordered, if it is still positive then call back to cardiac connection and the cardiology service will facilitate transfer and acceptance to the transplant service. If the third troponin is negative then the transplant service can be contacted directly if the need for transfer continues. <STEVEN WRAY - Last Filed: 05/10/17 06:09> - Laboratory Result Diagrams: 05/09/17 22:24 05/09/17 22:24 <DILSHAD IZAGUIRRE - Last Filed: 05/10/17 08:15> - Re-evaluation Re-evalutation: 05/10/17 08:13 Patient's third troponin came back negative. Troponins look to be downtrending. Discussed with the patient at bedside patient states chest pain approximate 24-48 hours ago currently no chest pain. Patient states noncompliance with her medications. Patient is able to understand Turkish and does speak a little bit Turkish back mostly will respond to me in Mozambican. Otherwise patient looks to be calm cooperative at this time. Patient is on IVC paperwork. Due to patient's underlying medical conditions positive now downtrending troponin history of chest pain feel that the patient will be better served medically admitted. Did discuss with Dr. Gee who was very gracious and willing to participate in this patient's care and admit her to the hospital for further evaluation. Our psych team also be notified patient will be kept on her IVC paperwork. All medications have been ordered for the patient. Currently pending admission (DILSHAD IZAGUIRRE) - Vital Signs Vital signs: Temp Pulse Resp BP Pulse Ox 98.3 F 129 H 18 143/105 H 96 05/09/17 21:26 05/09/17 21:26 05/10/17 07:01 05/10/17 07:00 05/10/17 07:01 - Laboratory Laboratory results interpreted by me: 05/09/17 05/09/17 05/10/17 22:24 22:24 03:30 WBC 14.9 H RDW 14.2 H Monocytes % 13.4 H Absolute Neutrophils 9.9 H Absolute Monocytes 2.0 H Carbon Dioxide 17 L Calcium 11.7 H Magnesium 1.4 L Direct Bilirubin 0.5 H Urine Ketones 20 H Salicylates < 1.0 L Acetaminophen < 10 L Discharge <RAKEL CASPER - Last Filed: 05/10/17 02:10> <STEVEN WRAY - Last Filed: 05/10/17 06:09> - Discharge Admitting Provider: Hospitalist - [facility] Admitted: Telemetry <DILSHAD IZAGUIRRE - Last Filed: 05/10/17 08:15> - Discharge Clinical Impression: Acute psychosis, Noncompliance with medications, Elevated troponin, Status post kidney transplant HTN (hypertension) Qualifiers: Hypertension type: essential hypertension Qualified Code(s): I10 - Essential ( primary) hypertension Condition: Stable Disposition: ADMITTED INPATIENT Scribe Attestation: 05/10/17 01:33 I personally performed the services described in the documentation, reviewed and edited the documentation which was dictated to the scribe in my presence, and it accurately records my words and actions. (STEVEN WRAY) Scribe Documentation - Scribe Written by Scribe:: Natan Kirk, 05/09/2017 00:45 acting as scribe for :: Pinky <RAKEL CASPER - Last Filed: 05/10/17 02:10>
[2017-05-09] MEDS ORDERED: BENZTROPINE MESYLATE 1 MG TABLET PO ONE (21:21)
[2017-05-09] MEDS ORDERED: HALOPERIDOL 5 MG TABLET PO ONE (21:21)
[2017-05-09] MEDS ORDERED: HALOPERIDOL LACTATE INJ 5 MG/1 ML VIAL IM ONE (22:06)
[2017-05-09] MEDS ORDERED: BENZTROPINE MESYLATE INJ 2 MG/2 ML AMPULE IM ONE (22:07)
[2017-05-09 22:37] LABS: ABSOLUTE LYMPHOCYTES (AUTO) 2.9 10^3/uL (0.5-4.7); ABSOLUTE NEUT (AUTO) 9.9 10^3/uL (1.7-8.2); BASOPHILS % (AUTO) 0.3 % (0-2); EOSINOPHILS % (AUTO) 0.3 % (0-6); HEMATOCRIT 40.4 % (36.0-47.0); HEMOGLOBIN 13.9 g/dL (12.0-15.5); HGB HCT DIFFERENCE 1.3; LYMPHOCYTES % (AUTO) 19.3 % (13-45); MEAN CORPUSCULAR HEMOGLOBIN 29.2 pg (27.0-33.4); MEAN CORPUSCULAR HGB CONC 34.5 g/dL (32.0-36.0); MEAN CORPUSCULAR VOLUME 85 fl (80-97); MONOCYTES % (AUTO) 13.4 % (3-13); RED BLOOD COUNT 4.77 10^6/uL (3.72-5.28); RED CELL DISTRIBUTION WIDTH 14.2 % (11.5-14.0); SEGMENTED NEUTROPHILS % (AUTO) 66.7 % (42-78); WHITE BLOOD COUNT 14.9 10^3/uL (4.0-10.5)
[2017-05-09 22:49] LABS: ALANINE AMINOTRANSFERASE 44 U/L (9-52); ALBUMIN 4.4 g/dL (3.5-5.0); ALKALINE PHOSPHATASE 103 U/L (38-126); ASPARTATE AMINO TRANSFERASE 25 U/L (14-36); BILIRUBIN,DIRECT 0.5 mg/dL (0.0-0.4); BILIRUBIN,TOTAL 0.6 mg/dL (0.2-1.3); BLOOD UREA NITROGEN 13 mg/dL (7-20); CALCIUM 11.7 mg/dL (8.4-10.2); CHLORIDE 105 mmol/L (98-107); CREATINE KINASE 58 U/L (30-135); CREATININE RESULT 0.87 mg/dL (0.52-1.25); GLUCOSE 101 mg/dL (75-110); MAGNESIUM 1.4 mg/dL (1.6-2.3); POTASSIUM 4.1 mmol/L (3.6-5.0); TOTAL PROTEIN 7.6 g/dL (6.3-8.2)
[2017-05-09 22:58] LABS: ALCOHOL < 10 mg/dL (NONE DETECTED)
[2017-05-09 23:05] LABS: ANION GAP 18 (5-19); CARBON DIOXIDE 17 mmol/L (22-30); SODIUM 139.5 mmol/L (137-145)
[2017-05-10] MEDS ORDERED: DAPSONE 25 MG TABLET PO SCH (01:30)
[2017-05-10] MEDS ORDERED: CARVEDILOL 12.5 MG TABLET PO ONE (02:00)
[2017-05-10] MEDS ORDERED: TACROLIMUS ANHYDROUS 1 MG CAPSULE PO ONE (02:00)
[2017-05-10] MEDS ORDERED: (PENDING PHARMACY ID) (Mycophenolate Sodium [Mycophenolic Acid] 360 MG) PO ONE (02:00)
[2017-05-10 04:36] LABS: APPEARANCE,URINE CLEAR; BILIRUBIN,URINE NEGATIVE (NEGATIVE); GLUCOSE, URINE NEGATIVE (NEGATIVE); KETONES,URINE 20 mg/dL (NEGATIVE); LEUKOCYTE ESTERASE,URINE NEGATIVE (NEGATIVE); NITRITE,URINE NEGATIVE (NEGATIVE); PROTEIN,URINE NEGATIVE (NEGATIVE); URINE BARBITURATES SCREEN NEGATIVE; URINE METHADONE SCREEN NEGATIVE; URINE OPIATES LOW NEGATIVE; URINE PHENCYCLIDINE SCREEN NEGATIVE; URINE SPECIFIC GRAVITY 1.014; UROBILINOGEN,URINE NEGATIVE mg/dL (<2.0)
[2017-05-10] MEDS ORDERED: ASPIRIN 81 MG TABLET, CHEWABLE PO ONE (05:47)
[2017-05-10] MEDS: LANSOPRAZOLE 30 MG TAB.RAP.DR PO SCH (06:13)
--- NOTE | 2017-05-10 07:26 | RADIOLOGY REPORT (SQ) ---
EXAM DESCRIPTION: CHEST SINGLE VIEW CLINICAL HISTORY: sob COMPARISON: None. FINDINGS: Single frontal view of the chest. Atherosclerotic calcification aortic arch. No consolidation, pneumothorax, or pleural effusion. No displaced rib fractures identified. Leads overlie the chest. Upper abdominal soft tissues are unremarkable. IMPRESSION: 1. No acute pulmonary process identified.
--- NOTE | 2017-05-10 09:14 | EKG REPORT ---
SEVERITY:- ABNORMAL ECG - SINUS TACHYCARDIA PROBABLE LVH WITH SECONDARY REPOL ABNRM : Confirmed by: Stephanie Liao 10-May-2017 09:13:59
[2017-05-10] MEDS ORDERED: ACETAMINOPHEN 325 MG TABLET PO PRN (09:50)
[2017-05-10] MEDS ORDERED: ONDANSETRON HCL INJ/PF 4 MG/2 ML SDV IV PRN (09:50)
[2017-05-10] MEDS ORDERED: ETHANOL TP SCH (10:00)
[2017-05-10] MEDS ORDERED: (PENDING PHARMACY ID) (Mycophenolate Sodium [Mycophenolic Acid] 360 MG) PO SCH (10:00)
[2017-05-10] MEDS ORDERED: (PENDING PHARMACY ID) (Esomeprazole Mag Trihydrate [Nexium] 40 MG) PO SCH (10:00)
[2017-05-10] MEDS ORDERED: ERYTHROMYCIN BASE TP SCH (10:00)
[2017-05-10] MEDS ORDERED: NORMAL SALINE 1000 ML 1,000 ML IV PRN (10:12)
--- NOTE | 2017-05-10 10:13 | PDOC H&P ---
History of Present Illness Admission Date/PCP: 05/10/17 08:35 Patient complains of: Chest Pain History of Present Illness: AMAURY DORADO is a 52 year old female presents with complaint of chest pain. Pt had also complained of pain in her toes. ER states that pt has moved here from [place] to live with her son. Pt was found wandering around. Pt speaks Swedish and Georgian. ER reports that they gave her haldol and cogentin. Pt during my time denies chest pain, shortness of breath, no fever, no diarrhea, no agitiaton. Pt states that she has nasal congestion. Past Medical History Cardiac Medical History: Reports: Coronary Artery Disease, Hypertension Denies: Congestive Heart Failure Pulmonary Medical History: Reports: None Endocrine Medical History: Reports: None Renal/ Medical History: Reports: Other - Bilateral atrophied kidneys with a renal transplant GI Medical History: Reports: None Musculoskeltal Medical History: Reports: None Psychiatric Medical History: Reports: Schizoaffective Disorder Past Surgical History Past Surgical History: Reports: Other - Kidney transplant probably in 2010 and [facility] Social History Lives with: Other - Patient lives with her son who is possibly deployed at this time Smoking Status: Smoker,Current Status Unk Frequency of Alcohol Use: None Drugs: None Family History Family History: Reviewed & Not Pertinent Parental Family History Reviewed: Yes Children Family History Reviewed: Yes Sibling(s) Family History Reviewed.: Yes Medication/Allergy Home Medications: Carvedilol [Coreg] 12.5 mg PO BID 05/10/17 Dapsone 100 mg PO Q7D 05/10/17 Erythromycin Base/Ethanol [Erythromycin 2% Gel] 30 gm TP BID 05/10/17 Esomeprazole Mag Trihydrate [Nexium] 40 mg PO DAILY 05/10/17 Furosemide [Lasix 40 mg Tablet] 40 mg PO QAMP PRN 05/10/17 Lisinopril 10 mg PO DAILY 05/10/17 Mycophenolate Sodium [Mycophenolic Acid] 360 mg PO BID 05/10/17 Nifedipine [Nifedipine ER] 90 mg PO DAILY 05/10/17 Tacrolimus [Prograf] 2 mg PO BID 05/10/17 Allergies/Adverse Reactions: No Known Allergies Allergy (Verified 04/29/17 11:47) Review of Systems Constitutional: ABSENT: chills, fever(s), headache(s), weight gain, weight loss Eyes: ABSENT: visual disturbances Ears: ABSENT: hearing changes Cardiovascular: PRESENT: chest pain. ABSENT: dyspnea on exertion, edema, orthropnea, palpitations Respiratory: ABSENT: cough, hemoptysis Gastrointestinal: ABSENT: abdominal pain, constipation, diarrhea, hematemesis, hematochezia, nausea, vomiting Genitourinary: ABSENT: dysuria, hematuria Musculoskeletal: ABSENT: joint swelling Integumentary: ABSENT: rash, wounds Neurological: PRESENT: confusion. ABSENT: abnormal gait, abnormal speech, dizziness, focal weakness, syncope Psychiatric: PRESENT: hallucinations. ABSENT: anxiety, depression, homidical ideation, suicidal ideation Endocrine: ABSENT: cold intolerance, heat intolerance, polydipsia, polyuria Hematologic/Lymphatic: ABSENT: easy bleeding, easy bruising Physical Exam Vital Signs: Temp Pulse Resp BP Pulse Ox 98.9 F 91 16 133/82 H 92 05/10/17 09:37 05/10/17 09:37 05/10/17 09:37 05/10/17 09:37 05/10/17 09:37 General appearance: PRESENT: no acute distress, well-developed, well-nourished Head exam: PRESENT: atraumatic, normocephalic Eye exam: PRESENT: conjunctiva pink, EOMI. ABSENT: scleral icterus Ear exam: PRESENT: normal external ear exam Mouth exam: PRESENT: moist, tongue midline Neck exam: ABSENT: carotid bruit, JVD, lymphadenopathy, thyromegaly Respiratory exam: PRESENT: clear to auscultation darinel. ABSENT: rales, rhonchi, wheezes Cardiovascular exam: PRESENT: RRR. ABSENT: diastolic murmur, rubs, systolic murmur Pulses: PRESENT: normal dorsalis pedis pul Vascular exam: PRESENT: normal capillary refill GI/Abdominal exam: PRESENT: normal bowel sounds, soft. ABSENT: distended, guarding, mass, organolmegaly, rebound, tenderness Rectal exam: PRESENT: deferred Extremities exam: PRESENT: full ROM. ABSENT: calf tenderness, clubbing, pedal edema Neurological exam: PRESENT: alert, awake, oriented to person, oriented to place , oriented to time, oriented to situation, CN II-XII grossly intact. ABSENT: motor sensory deficit Psychiatric exam: PRESENT: unusual affect, other - + auditory hallucination Focused psych exam: PRESENT: psychomotor agitation Skin exam: PRESENT: dry, intact, warm. ABSENT: cyanosis, rash Results Impressions: Chest X-Ray 05/10/17 07:09 IMPRESSION: 1. No acute pulmonary process identified. Assessment & Plan - Diagnosis (1) Chest pain Is this a current diagnosis for this admission?: Yes Plan: Will consult Dr. Liao. Will check Troponin, lipid profile, and 2 D Echo. Will check TSH, Free T4 and HgbA1C. (2) kidney transplant Is this a current diagnosis for this admission?: Yes Plan: Tacrolimus and Mycophenolate (3) Acute psychosis Is this a current diagnosis for this admission?: Yes Plan: Will consult Shade Arechiga MD. Will continue Haldol and Ativan PRN. (4) Hypercalcemia Is this a current diagnosis for this admission?: Yes Plan: Will give IVFs. Will do work up. (5) Hypomagnesemia Is this a current diagnosis for this admission?: Yes Plan: Will give Magnesium replacement. (6) Elevated troponin Is this a current diagnosis for this admission?: Yes Plan: Will repeat troponins. Will consult Cardiology. (7) DVT prophylaxis Is this a current diagnosis for this admission?: Yes Plan: SCD - Time Time Spent: 30 to 50 Minutes
[2017-05-10] MEDS ORDERED: HALOPERIDOL LACTATE INJ 5 MG/1 ML VIAL IM PRN (10:33)
[2017-05-10] MEDS ORDERED: LORAZEPAM INJ 2 MG/1 ML VIAL IV PRN (10:34)
[2017-05-10] MEDS ORDERED: HALOPERIDOL LACTATE INJ 5 MG/1 ML VIAL ONE (10:34)
[2017-05-10] MEDS ORDERED: MAGNESIUM SULFATE/D5W 1 GM/100 ML RTUPB IV ONE ×2 (11:21→13:47)
[2017-05-10] MEDS ORDERED: HALOPERIDOL LACTATE INJ 5 MG/1 ML VIAL IM ONE (11:30)
[2017-05-10] MEDS: CARVEDILOL 12.5 MG TABLET PO SCH ×2 (11:38→21:26)
[2017-05-10] MEDS: NIFEDIPINE 30 MG TAB.ER.24 PO SCH (11:38)
[2017-05-10] MEDS: LISINOPRIL 10 MG TABLET PO SCH (11:39)
[2017-05-10] MEDS ORDERED: INFLUENZA ADLT QUAD (36MOS+) 2017-18 VAC 0.5 ML SYR IM PRN (11:58)
[2017-05-10] MEDS: TACROLIMUS ANHYDROUS 1 MG CAPSULE PO SCH ×2 (13:39→17:16)
[2017-05-10] MEDS: MAGNESIUM SULFATE/D5W 1 GM/100 ML RTUPB IV SCH ×3 (13:50→16:36)
--- NOTE | 2017-05-10 14:55 | PSYCHOLOGICAL NOTE ---
Psych Note - Psych Note Psych Note: Today, patient psychiatrically presents as she did 2 weeks ago, when at that time it was determined her presentation was manipulative and consistent with secondary gain. She reports wanting 24-hour care and not wanting to stay in her home. Patient continues to present as manipulative, giving different reasons for coming to the ED and then intermittently cooperative with staff. She is medication noncompliant. She is currently admitted to a medical floor for medical problems but does not meet criteria for IVC for reasons stated above. Patient is recommended for rescind IVC to follow up with her provider of choice. I consulted with Dr. Arechiga in regards to the care and management of this patient. Spoke with hospitalist directly to provide additional background information to include, patient's desire to reside in a 24-hour facility, her status is a by lingual person (fluent in Azeri and Czech), and historical information regarding her prior hospitalizations. Hospitalist states he is in agreement with the recent IVC and may consult at a later time should the need arise.
--- NOTE | 2017-05-10 16:58 | PDOC CONSULTATION ---
Consultation Consult Date: 05/10/17 Attending physician:: FLOWER RICHARD Consult reason:: Chest pain History of Present Illness Admission Date/PCP: 05/10/17 08:35 Patient complains of: Chest pain History of Present Illness: AMAURY DORADO is a 52 year old female presents with complaint of chest pain. Pt had also complained of pain in her toes. ER states that pt has moved here from [place] to live with her son. Pt was found wandering around. Pt speaks Welsh and Palestinian. ER reports that they gave her haldol and cogentin. Pt during my time denies chest pain, shortness of breath, no fever, no diarrhea, no agitiaton. Pt states that she has nasal congestion. This history was reviewed and confirmed. Patient speaks very little Welsh but claims that she is comfortable and doing fine. She just told me that she was very sleepy. She had gotten Haldol just previously. Past Medical History Cardiac Medical History: Reports: Hypertension Denies: Congestive Heart Failure Pulmonary Medical History: Reports: None Endocrine Medical History: Reports: None Renal/ Medical History: Reports: Other - Bilateral atrophied kidneys with a renal transplant GI Medical History: Reports: None Musculoskeltal Medical History: Reports: None Psychiatric Medical History: Reports: Schizoaffective Disorder Denies: Depression Past Surgical History Past Surgical History: Reports: Other - Kidney transplant probably in 2010 and [facility] Social History Information Source: Patient Lives with: Other - Patient lives with her son who is possibly deployed at this time Smoking Status: Smoker,Current Status Unk Cigarettes Packs Per Day: 0.5 Frequency of Alcohol Use: None Hx Recreational Drug Use: No Drugs: None Hx Prescription Drug Abuse: No - Advance Directive Resuscitation Status: Full Code Surrogate healthcare decision maker:: Patient's children especially daughter is the surrogate decision-maker. Family History Family History: Reviewed & Not Pertinent Parental Family History Reviewed: Yes Children Family History Reviewed: Yes Sibling(s) Family History Reviewed.: Yes Medication/Allergy Home Medications: Carvedilol [Coreg] 12.5 mg PO BID 05/10/17 Dapsone 100 mg PO Q7D 05/10/17 Erythromycin Base/Ethanol [Erythromycin 2% Gel] 30 gm TP BID 05/10/17 Esomeprazole Mag Trihydrate [Nexium] 40 mg PO DAILY 05/10/17 Furosemide [Lasix 40 mg Tablet] 40 mg PO QAMP PRN 05/10/17 Lisinopril 10 mg PO DAILY 05/10/17 Mycophenolate Sodium [Mycophenolic Acid] 360 mg PO BID 05/10/17 Nifedipine [Nifedipine ER] 90 mg PO DAILY 05/10/17 Tacrolimus [Prograf] 2 mg PO BID 05/10/17 Allergies/Adverse Reactions: No Known Allergies Allergy (Verified 04/29/17 11:47) Review of Systems Review of Systems: Please see history of present illness and past medical history as wall. Constitutional: No fever or chills reported. Head : No recent chronic headaches, recent head injury. Eyes: No recent eye pain, diplopia, redness, discharge, acute visual changes. Ears: No recent chronic ear pain, acute hearing loss, ear discharge. Oral cavity: No recent ulcerations, bleeding, oral cavity discomfort. Neck: No recent acute neck pain reported. Hematologic: No recent easy bruising or bleeding or hematologic malignancy reported. Lymphatic: No recent lymphatic malignancy, chronic lymphadenopathy reported yet Cardiovascular system review: See history of present illness. Respiratory system review: No recent chronic cough, hemoptysis, blood clots in the lungs reported. Mild Shortness of breath on exertion Gastrointestinal system review: Negative for any recent acute or chronic abdominal pain, hematemesis, melena, recent change in bowel habits. Genitourinary system review: No recent acute or chronic hematuria, flank pain, UTI etc. reported. Patient has history of kidney transplant. Skin system review: Negative for any recent abnormal bruising, no rash, no pruritus reported. Neurologic: No prior history of strokes, mini strokes, seizure disorder. Psychologic: No history of major psychosis or major depression reported. Musculoskeletal: Minor aches and pains reported. No acute joint swelling reported. Endocrine: No recent polyuria, polydipsia, recent heat or cold intolerance. Physical Exam Vital Signs: Temp Pulse Resp BP Pulse Ox 98.6 F 89 17 149/82 H 91 L 05/10/17 11:34 05/10/17 11:34 05/10/17 11:34 05/10/17 11:34 05/10/17 11:34 Intake & Output 05/09/17 05/10/17 05/11/17 06:59 06:59 06:59 Intake Total 480 Balance 480 Weight 65.5 kg Exam: GENERAL: well-nourished and in no acute distress. Alert and oriented x3 HEAD: Atraumatic, normocephalic. EYES: Pupils equal round and reactive to light, extraocular movements intact, sclera anicteric, conjunctiva are normal. ENT: TMs normal, nares patent, oropharynx clear without exudates. Moist mucous membranes. No oral ulcerations or bleeding gums noted NECK: supple without lymphadenopathy. Trachea is central. No cervical or axillary lymphadenopathy noted. Carotids are 2+, JVD WNL LUNGS: Respiration seems nonlabored, no significant accessory muscle action noted. Breath sounds clear to auscultation bilaterally and equal noted. No wheezes rales or rhonchi noted. No significant dullness noted on percussion. CHEST: Palpation of the chest wall shows no significant chest wall tenderness. No other significant abnormalities noted. HEART: [place] ACCOUNT CLERK, No PSH, 1/6 KIRSTEN aortic area, 1/6 palmer systolic murmur mitral area, no rubs, no gallops. ABDOMEN: Soft, no significant tenderness appreciated, normoactive bowel sounds. No guarding, no rebound. No rigidity noted . No masses appreciated. EXTREMITIES: Pedal pulses are 1-2+, no calf tenderness noted. No clubbing or cyanosis.trace to 1+ pedal edema noted NEUROLOGICAL: Focused neurological exam showed no significant neurologic deficit. Normal speech, no focal weakness appreciated. PSYCH: Normal mood, normal affect. Judgment and insight within normal limits. SKIN: No significant ecchymosis, rash, ulcerations or signs of pruritus noted. MUSCULOSKELETAL EXAM: No significant joint swelling noted. Results Laboratory Results: 05/10/17 05/10/17 11:50 11:50 Creatine Kinase 145 H Troponin I 0.067 EKG Comments: Showed sinus rhythm with mild sinus tachycardia. No acute ST-T wave changes noted Impressions: Chest X-Ray 05/10/17 07:09 IMPRESSION: 1. No acute pulmonary process identified. Assessment & Plan - Diagnosis (1) Chest pain Qualifiers: Chest pain type: unspecified Qualified Code(s): R07.9 - Chest pain, unspecified Is this a current diagnosis for this admission?: Yes (2) Elevated troponin Is this a current diagnosis for this admission?: Yes (3) HTN (hypertension) Qualifiers: Hypertension type: essential hypertension Qualified Code(s): I10 - Essential (primary) hypertension Is this a current diagnosis for this admission?: Yes (4) Noncompliance with medications Is this a current diagnosis for this admission?: Yes (5) Status post kidney transplant Is this a current diagnosis for this admission?: Yes (6) Altered mental status, unspecified Qualifiers: Altered mental status type: unspecified Qualified Code(s): R41.82 - Altered mental status, unspecified Is this a current diagnosis for this admission?: Yes - Notes Notes: Chest pain: Cardiac enzymes are suggestive but EKG negative. Will repeat EKG. Exact etiology not clear but in view of sinus tachycardia, it may be worthwhile to consider pulmonary embolism in the differential diagnosis. Have ordered a d- dimer. If positive consider ordering a VQ scan or a CTA. Elevated troponin I: Exact etiology not clear. Patient did have chest pain. Details are difficult to obtain due to language barrier. At this point recommend treating patient for presumed underlying CAD with beta blockers, aspirin, statins, JORDAN inhibitor/ARB. Noncompliance with medications: Status post kidney transplant: Recommend nephrology follow-up and evaluation. Altered mental status: Exact etiology not clear. When able to consent will consider an ischemia evaluation. - Time Time Spent: 30 to 50 Minutes - CODE STATUS was discussed, patient remains full code. Surrogate decision-maker patient's children. Multiple medical problems were addressed. More than 50% of the time spent coordinating care, discussing management plans with involved caregivers. Management plans discussed with involved personnels. Medical decision making was of moderate to high complexity , patient's has multiple comorbidities. Medications reviewed and adjusted accordingly: Yes
[2017-05-10 17:49] LABS: CHOLESTEROL 207.23 mg/dL (0-200); Direct HDL 49 mg/dL (>40); TRIGLYCERIDES 124 mg/dL (<150)
[2017-05-10 18:00] LABS: DIRECT LDL 142 mg/dL (<100)
[2017-05-11 05:19] LABS: ABSOLUTE EOSINOPHILS # (AUTO) 0.2 10^3/uL (0.0-0.6); ABSOLUTE LYMPHOCYTES (AUTO) 2.3 10^3/uL (0.5-4.7); ABSOLUTE MONOCYTES (AUTO) 0.9 10^3/uL (0.1-1.4); ABSOLUTE NEUT (AUTO) 4.8 10^3/uL (1.7-8.2); BASOPHILS % (AUTO) 0.4 % (0-2); HEMATOCRIT 34.9 % (36.0-47.0); HGB HCT DIFFERENCE 0.5; LYMPHOCYTES % (AUTO) 27.8 % (13-45); MEAN CORPUSCULAR HGB CONC 33.8 g/dL (32.0-36.0); MEAN CORPUSCULAR VOLUME 86 fl (80-97); MONOCYTES % (AUTO) 11.1 % (3-13); RED BLOOD COUNT 4.07 10^6/uL (3.72-5.28); RED CELL DISTRIBUTION WIDTH 14.1 % (11.5-14.0); SEGMENTED NEUTROPHILS % (AUTO) 58.7 % (42-78); WHITE BLOOD COUNT 8.1 10^3/uL (4.0-10.5)
[2017-05-11 05:22] LABS: PROTHROMBIN TIME 14.5 SEC (11.4-15.4)
[2017-05-11 05:23] LABS: PARTIAL THROMBOPLASTIN TIME 24.5 SEC (23.5-35.8)
[2017-05-11 05:28] LABS: HEMOGLOBIN 11.8 g/dL (12.0-15.5)
[2017-05-11 05:30] LABS: ALANINE AMINOTRANSFERASE 34 U/L (9-52); ALBUMIN 3.2 g/dL (3.5-5.0); ALKALINE PHOSPHATASE 77 U/L (38-126); ANION GAP 10 (5-19); ASPARTATE AMINO TRANSFERASE 18 U/L (14-36); BILIRUBIN,DIRECT 0.2 mg/dL (0.0-0.4); BILIRUBIN,TOTAL 0.3 mg/dL (0.2-1.3); BLOOD UREA NITROGEN 7 mg/dL (7-20); CALCIUM 9.8 mg/dL (8.4-10.2); CARBON DIOXIDE 22 mmol/L (22-30); CHLORIDE 112 mmol/L (98-107); CHOLESTEROL 183.97 mg/dL (0-200); Direct HDL 42 mg/dL (>40); GLUCOSE 91 mg/dL (75-110); MAGNESIUM 1.8 mg/dL (1.6-2.3); PHOSPHORUS 2.8 mg/dL (2.5-4.5); SODIUM 144.1 mmol/L (137-145); TOTAL PROTEIN 5.6 g/dL (6.3-8.2); TRIGLYCERIDES 155 mg/dL (<150)
[2017-05-11 05:43] LABS: DIRECT LDL 129 mg/dL (<100)
[2017-05-11] MEDS: LANSOPRAZOLE 30 MG TAB.RAP.DR PO SCH (06:05)
[2017-05-11 06:10] LABS: THYROID STIMULATING HORMONE 0.76 uIU/mL (0.47-4.68)
--- NOTE | 2017-05-11 09:05 | EKG REPORT ---
SEVERITY:- ABNORMAL ECG - SINUS RHYTHM LEFT VENTRICULAR HYPERTROPHY : Confirmed by: Stephanie Liao 11-May-2017 09:04:34
[2017-05-11] MEDS: CARVEDILOL 12.5 MG TABLET PO SCH ×2 (10:05→21:00)
[2017-05-11] MEDS: NIFEDIPINE 30 MG TAB.ER.24 PO SCH (10:05)
[2017-05-11] MEDS: LISINOPRIL 10 MG TABLET PO SCH (10:05)
[2017-05-11] MEDS: TACROLIMUS ANHYDROUS 1 MG CAPSULE PO SCH ×2 (10:09→18:03)
[2017-05-11] MEDS ORDERED: NIFEDIPINE 30 MG TAB.ER.24 PO ONE (14:00)
[2017-05-11] MEDS ORDERED: ONDANSETRON HCL INJ/PF 4 MG/2 ML SDV IV PRN (14:00)
--- NOTE | 2017-05-11 14:15 | PDOC PROGRESS REPORT ---
Subjective Progress Note for:: 05/11/17 Subjective:: Pt seen earlier this morning. Pt states that she was not confused or hallucinating. Pt states that her daughter was in the room with her in the ER when no one was present except patient. Pt states that she has never seen Psychiatry and that no Physician looked at her foot. Pt states that she lives at home by herself. Physical Exam Vital Signs: Temp Pulse Resp BP Pulse Ox 98.8 F 91 16 129/68 H 95 05/11/17 11:09 05/11/17 11:09 05/11/17 11:09 05/11/17 11:09 05/11/17 11:09 Intake & Output 05/10/17 05/11/17 05/12/17 06:59 06:59 06:59 Intake Total 2552 Balance 2552 Weight 66.3 kg General appearance: PRESENT: no acute distress, well-developed, well-nourished Head exam: PRESENT: atraumatic, normocephalic Eye exam: PRESENT: conjunctiva pink, EOMI, PERRLA. ABSENT: scleral icterus Ear exam: PRESENT: normal external ear exam Mouth exam: PRESENT: moist, tongue midline Neck exam: ABSENT: carotid bruit, JVD, lymphadenopathy, thyromegaly Respiratory exam: PRESENT: clear to auscultation darinel. ABSENT: rales, rhonchi, wheezes Cardiovascular exam: PRESENT: RRR. ABSENT: diastolic murmur, rubs, systolic murmur Pulses: PRESENT: normal dorsalis pedis pul Vascular exam: PRESENT: normal capillary refill GI/Abdominal exam: PRESENT: normal bowel sounds, soft. ABSENT: distended, guarding, mass, organolmegaly, rebound, tenderness Rectal exam: PRESENT: deferred Extremities exam: PRESENT: full ROM. ABSENT: calf tenderness, clubbing, pedal edema Neurological exam: PRESENT: alert, awake, oriented to person, oriented to place , oriented to time, oriented to situation, CN II-XII grossly intact. ABSENT: motor sensory deficit Skin exam: PRESENT: other - left lateral aspect of plantar surface with healed wound. No sign of infection. Results Laboratory Results: 05/11/17 04:45 05/11/17 04:45 05/10/17 05/10/17 05/11/17 17:21 17:21 04:45 WBC 8.1 RBC 4.07 Hgb 11.8 L D Hct 34.9 L MCV 86 MCH 29.0 MCHC 33.8 RDW 14.1 H Plt Count 217 Seg Neutrophils % 58.7 Lymphocytes % 27.8 Monocytes % 11.1 Eosinophils % 2.0 Basophils % 0.4 Absolute Neutrophils 4.8 Absolute Lymphocytes 2.3 Absolute Monocytes 0.9 Absolute Eosinophils 0.2 Absolute Basophils 0.0 Sodium Potassium Chloride Carbon Dioxide Anion Gap BUN Creatinine Est GFR ( Amer) Est GFR (Non-Af Amer) Glucose Calcium Phosphorus Magnesium Total Bilirubin AST ALT Alkaline Phosphatase Ammonia Total Protein Albumin Triglycerides 124 Cholesterol 207.23 H LDL Cholesterol Direct 142 H VLDL Cholesterol 25.0 HDL Cholesterol 49 TSH 1.32 Free T4 05/11/17 05/11/17 05/11/17 04:45 04:45 04:45 WBC RBC Hgb Hct MCV MCH MCHC RDW Plt Count Seg Neutrophils % Lymphocytes % Monocytes % Eosinophils % Basophils % Absolute Neutrophils Absolute Lymphocytes Absolute Monocytes Absolute Eosinophils Absolute Basophils Sodium 144.1 Potassium 4.0 Chloride 112 H Carbon Dioxide 22 Anion Gap 10 BUN 7 Creatinine 0.60 Est GFR ( Amer) > 60 Est GFR (Non-Af Amer) > 60 Glucose 91 Calcium 9.8 Phosphorus 2.8 Magnesium 1.8 Total Bilirubin 0.3 AST 18 ALT 34 Alkaline Phosphatase 77 Ammonia < 8.7 L Total Protein 5.6 L Albumin 3.2 L Triglycerides 155 H Cholesterol 183.97 LDL Cholesterol Direct 129 H VLDL Cholesterol 31.0 HDL Cholesterol 42 TSH 0.76 Free T4 1.59 05/10/17 05/10/17 05/10/17 11:50 11:50 17:21 Creatine Kinase 145 H 205 H Troponin I 0.067 05/10/17 05/10/17 05/10/17 17:21 21:55 21:55 Creatine Kinase 164 H Troponin I 0.050 0.043 Impressions: Chest X-Ray 05/10/17 07:09 IMPRESSION: 1. No acute pulmonary process identified. Assessment & Plan - Diagnosis (1) Chest pain Qualifiers: Chest pain type: unspecified Qualified Code(s): R07.9 - Chest pain, unspecified Is this a current diagnosis for this admission?: Yes Plan: Will consult Dr. Liao. EKG normal with normal troponins. D-Dimer normal. (2) kidney transplant Is this a current diagnosis for this admission?: Yes Plan: Tacrolimus and Mycophenolate (3) Acute psychosis Is this a current diagnosis for this admission?: Yes Plan: Pt seen by mental health. Will continue Haldol and Ativan PRN. Case management to evaluate home environment. (4) Hypercalcemia Is this a current diagnosis for this admission?: Yes Plan: Resolved. Most likely secondary to Dehydration. (5) Hypomagnesemia Is this a current diagnosis for this admission?: Yes Plan: resolved. (6) Elevated troponin Is this a current diagnosis for this admission?: Yes Plan: Cardiology recommends outpatient follow up apt. - Time Time Spent with patient: 15-24 minutes - Home once Case Management has evaluated home environment.
--- NOTE | 2017-05-11 18:17 | XCELERA REPORT ---
[address] [address] Transthoracic Echocardiogram Report Name: AMAURY DORADO Age: 52 yrs Gender: Female : 1965 Patient Status: Inpatient Patient Location: [address] [place] [address] Study Date: 05/11/2017 02:52 PM Height: 63 in Weight: 144 lb BSA: 1.7 m2 Procedure: A complete two-dimensional transthoracic echocardiogram was performed (2D, M-mode, spectral and color flow Doppler). There was technical limitations during this study due to uncooperative patient. The apical views were not obtained due to pt uncoperative. Reason For Study: troponin elevated Ordering Physician: STEPHANIE HARMON Performed By: Henny Astorga Interpretation Summary The apical views were not obtained due to pt uncoperative. There was technical limitations during this study due to uncooperative patient The left ventricular ejection fraction is within normal limits. LV diastolic function could not be adequately assessed. Not all wall segments were well visualized. The right ventricular systolic function is normal. The left atrial size is normal. There is a trace amount of mitral regurgitation There is a mild amount of aortic regurgitation There is no aortic valve stenosis The aortic valve is sclerotic, but shows no functional abnormality There is a trace or physiologic amount of tricuspid regurgitation The aortic root is not well visualized but is probably normal size. There is no pericardial effusion. MMode/2D Measurements & Calculations RVDd: 3.1 cm LVIDd: 4.0 cm FS: 36.6 % Ao root diam: 2.6 cm IVSd: 0.93 cm LVIDs: 2.6 cm EDV(Teich): 70.9 ml LVPWd: 0.90 cm ESV(Teich): 23.5 ml Ao root area: 5.3 cm2 EF(Teich): 66.9 % LA dimension: 3.4 cm Doppler Measurements & Calculations PA V2 max: 119.9 cm/sec PA max P.8 mmHg Left Ventricle The left ventricle is grossly normal size. There is normal left ventricular wall thickness. The left ventricular ejection fraction is within normal limits. LV diastolic function could not be adequately assessed. Not all wall segments were well visualized. Right Ventricle The right ventricle is normal in size, thickness and function. The right ventricular systolic function is normal. Atria Right atrium not well visualized secondary to technical limitations. The left atrial size is normal. Mitral Valve There is no mitral valve stenosis. There is a trace amount of mitral regurgitation. Aortic Valve The aortic valve is sclerotic, but shows no functional abnormality. There is no aortic valve stenosis. There is a mild amount of aortic regurgitation. Tricuspid Valve The tricuspid valve is not well visualized, but is grossly normal. There is no tricuspid stenosis. There is a trace or physiologic amount of tricuspid regurgitation. Pulmonic Valve The pulmonic valve is not well visualized. Great Vessels The aortic root is not well visualized but is probably normal size. The inferior vena cava was not visualized. Effusions There is no pericardial effusion. : STEPHANIE HARMON > Stephanie Harmon
[2017-05-11] MEDS ORDERED: LORAZEPAM 1 MG TABLET ONE (22:56)
[2017-05-11] MEDS ORDERED: OLANZAPINE INJ/PF 10 MG SDV IM ONE (23:00)
[2017-05-11] MEDS ORDERED: LORAZEPAM 1 MG TABLET PO ONE (23:15)
[2017-05-12] MEDS ORDERED: OLANZAPINE INJ/PF 10 MG SDV IM ONE (00:11)
[2017-05-12 04:57] LABS: ANION GAP 12 (5-19); BLOOD UREA NITROGEN 12 mg/dL (7-20); CALCIUM 10.6 mg/dL (8.4-10.2); CARBON DIOXIDE 22 mmol/L (22-30); CHLORIDE 112 mmol/L (98-107); CREATININE RESULT 0.62 mg/dL (0.52-1.25); GLUCOSE 78 mg/dL (75-110); POTASSIUM 3.8 mmol/L (3.6-5.0); SODIUM 145.9 mmol/L (137-145)
[2017-05-12] MEDS: LANSOPRAZOLE 30 MG TAB.RAP.DR PO SCH (05:40)
[2017-05-12 08:07] VITALS: BP 138/89
[2017-05-12] MEDS ORDERED: HALOPERIDOL DECANOATE INJ 100 MG/1 ML VIAL IM ONE (09:30)
[2017-05-12] MEDS ORDERED: NIFEDIPINE 30 MG TAB.ER.24 PO SCH (10:00)
[2017-05-12] MEDS ORDERED: TACROLIMUS ANHYDROUS 1 MG CAPSULE PO SCH (10:00)
[2017-05-12] MEDS: LISINOPRIL 10 MG TABLET PO SCH (10:16)
[2017-05-12] MEDS: CARVEDILOL 12.5 MG TABLET PO SCH (10:17)
--- NOTE | 2017-05-12 19:43 | PDOC PROGRESS REPORT ---
Subjective Progress Note for:: 05/12/17 Subjective:: Patient was seen in the morning but she would not let people examine her. She just wanted to leave the hospital. Patient was noted to walk briskly up and down the hallway without significant discomfort. Patient obviously not in discomfort. Patient speaking with full force and in high volume but in the [place] language although I am told she is fluent in [place]ian as well. Physical Exam Vital Signs: Temp Pulse Resp BP Pulse Ox 98.8 F 73 16 138/89 H 94 05/12/17 08:00 05/12/17 08:00 05/12/17 08:00 05/12/17 08:00 05/12/17 08:00 Intake & Output 05/11/17 05/12/17 05/13/17 06:59 06:59 06:59 Intake Total 2552 1559 Balance 2552 1559 Weight 66.3 kg Exam: Patient did not let anybody examine her saying that she would want to go home and was walking out home. Results Laboratory Results: 05/11/17 04:45 05/12/17 03:52 05/12/17 03:52 Sodium 145.9 H Potassium 3.8 Chloride 112 H Carbon Dioxide 22 Anion Gap 12 BUN 12 Creatinine 0.62 Est GFR ( Amer) > 60 Est GFR (Non-Af Amer) > 60 Glucose 78 Calcium 10.6 H 05/10/17 05/10/17 05/10/17 11:50 11:50 17:21 Creatine Kinase 145 H 205 H Troponin I 0.067 05/10/17 05/10/17 05/10/17 17:21 21:55 21:55 Creatine Kinase 164 H Troponin I 0.050 0.043 Impressions: Chest X-Ray 05/10/17 07:09 IMPRESSION: 1. No acute pulmonary process identified. Assessment & Plan - Diagnosis (1) Chest pain Qualifiers: Chest pain type: unspecified Qualified Code(s): R07.9 - Chest pain, unspecified Is this a current diagnosis for this admission?: Yes (2) Elevated troponin Is this a current diagnosis for this admission?: Yes (3) HTN (hypertension) Qualifiers: Hypertension type: essential hypertension Qualified Code(s): I10 - Essential (primary) hypertension Is this a current diagnosis for this admission?: Yes (4) Noncompliance with medications Is this a current diagnosis for this admission?: Yes (5) Status post kidney transplant Is this a current diagnosis for this admission?: Yes (6) Altered mental status, unspecified Qualifiers: Altered mental status type: unspecified Qualified Code(s): R41.82 - Altered mental status, unspecified Is this a current diagnosis for this admission?: Yes - Notes Notes: Based on patient behavior and noted to be walking briskly as well as having high volume speech as well as fast speech, did not think patient has any significant cardiac issues going on. Patient would benefit from a stress test whenever she is agreeable to pursue it. At this point will sign out. Patient was scheduled for a nuclear stress test earlier this morning but she declined. - Time Time with patient: Less than 15 minutes
--- NOTE | 2017-05-13 08:25 | PDOC DISCHARGE SUMMARY ---
General - Admit/Disc Date/PCP Admission Date/Primary Care Provider: 05/10/17 08:35 Discharge Date: 05/12/17 - Discharge Diagnosis (2) Chest pain Is this a current diagnosis for this admission?: Yes (3) Elevated troponin Is this a current diagnosis for this admission?: Yes (4) Hypercalcemia Is this a current diagnosis for this admission?: Yes (5) Hypomagnesemia Is this a current diagnosis for this admission?: Yes (6) kidney transplant Is this a current diagnosis for this admission?: Yes - Additional Information Resuscitation Status: Full Code Discharge Diet: As Tolerated Discharge Activity: Activity As Tolerated Home Medications: Carvedilol [Coreg 12.5 mg Tablet] 12.5 mg PO Q12 05/11/17 Dapsone 100 mg PO Q7D 05/11/17 Erythromycin Base/Ethanol [Erythromycin 2% Gel] 30 gm TP BID 05/11/17 Esomeprazole Magnesium [Nexium] 40 mg PO DAILY 05/11/17 Furosemide [Lasix 40 mg Tablet] 40 mg PO PRN PRN 05/11/17 Lisinopril [Prinivil 10 mg Tablet] 10 mg PO DAILY 05/11/17 Mycophenolate Sodium [Mycophenolic Acid] 360 mg PO BID 05/11/17 Nifedipine [Nifedipine ER] 90 mg PO DAILY 05/11/17 Tacrolimus Anhydrous [Prograf 1 mg Capsule] 1 mg PO QPM 05/11/17 Tacrolimus Anhydrous [Prograf 1 mg Capsule] 2 mg PO QAM 05/11/17 Aspirin [Aspirin 81 mg Chewable Tablet] 81 mg PO DAILY #1 pkg 05/12/17 Atorvastatin Calcium 20 mg PO QHS 30 Days #30 tablet 05/12/17 Carvedilol [Coreg 12.5 mg Tablet] 12.5 mg PO Q12 tablet 05/12/17 History of Present Illness History of Present Illness: AMAURY DORADO is a 52 year old female who has presented to the ED with various complaints. Patient complains of chest pain and toe pain. Patient has a history schizoaffective disorder and personality disorder. Patient brought in for cardiac evaluation. Hospital Course Hospital Course: Patient unfortunately presents to the hospital with various complaints. This time it was chest and toe pain. Patient did have indeterminate troponins. Cardiology was consulted. Patient was not cooperative with the echo and refused to have the stress test done stating that she is going home. This information was told to Dr. Liao who recommend medical management for the patient at this time. Unfortunately, patient left AMA and did not take her script for aspirin or statin. Patient is on a betablocker but has not been taking it. Patient magnesium and calcium were corrected. Patient was continued on her tacrolimus and mycophenolate as she is a renal transplant patient. Patient has schizoaffective and personality disorder. She is well know to psychology. The psychology recommend long acting haldol since patient tends to be non complaint. Patient stated that she is not hallucinating nor does she want to her herself or anyone else therefore she is not taking that medications. She did agree to have home health follow up with her. Patient states she did not take her other medications because it was contaminated by the nursing staff touch it. Patient was spoke to using an bilingual interpreter number [id number]. Patient states she did not have any further concerns. When the nursing staff did not have her paper work completed, she became upset and walked to the elevator and went downstairs to the lobby. She refused to take a taxi home. She refused to leave the [employer]. Security was called. She still refused to leave. Unfortunately patient was arrested and removed for the premises. Again patient left without being discharged however we still attempted to assist patient but will little to no success. Physical Exam Vital Signs: Temp Pulse Resp BP Pulse Ox 98.8 F 73 16 138/89 H 94 05/12/17 08:00 05/12/17 08:00 05/12/17 08:00 05/12/17 08:00 05/12/17 08:00 Intake & Output 05/11/17 05/12/17 05/13/17 06:59 06:59 06:59 Intake Total 2552 1559 Balance 2552 1559 Weight 66.3 kg General appearance: PRESENT: no acute distress, well-developed, well-nourished, other - Patient in clean clothing and hair combed. Head exam: PRESENT: atraumatic, normocephalic Eye exam: PRESENT: conjunctiva pink, EOMI, PERRLA. ABSENT: scleral icterus Ear exam: PRESENT: normal external ear exam Mouth exam: PRESENT: moist, tongue midline Neck exam: ABSENT: carotid bruit, JVD, lymphadenopathy, thyromegaly Respiratory exam: PRESENT: clear to auscultation darinel. ABSENT: rales, rhonchi, wheezes Cardiovascular exam: PRESENT: RRR. ABSENT: diastolic murmur, rubs, systolic murmur Pulses: PRESENT: normal dorsalis pedis pul Vascular exam: PRESENT: normal capillary refill GI/Abdominal exam: PRESENT: normal bowel sounds, soft. ABSENT: distended, guarding, mass, organolmegaly, rebound, tenderness Rectal exam: PRESENT: deferred Extremities exam: PRESENT: full ROM. ABSENT: calf tenderness, clubbing, pedal edema Neurological exam: PRESENT: alert, awake, oriented to person, oriented to place , oriented to time, oriented to situation, CN II-XII grossly intact. ABSENT: motor sensory deficit Psychiatric exam: PRESENT: agitated. ABSENT: homicidal ideation, suicidal ideation Skin exam: PRESENT: dry, intact, warm. ABSENT: cyanosis, rash Results Laboratory Results: 05/11/17 04:45 05/12/17 03:52 05/12/17 03:52 Sodium 145.9 H Potassium 3.8 Chloride 112 H Carbon Dioxide 22 Anion Gap 12 BUN 12 Creatinine 0.62 Est GFR ( Amer) > 60 Est GFR (Non-Af Amer) > 60 Glucose 78 Calcium 10.6 H 05/10/17 05/10/17 05/10/17 11:50 11:50 17:21 Creatine Kinase 145 H 205 H Troponin I 0.067 05/10/17 05/10/17 05/10/17 17:21 21:55 21:55 Creatine Kinase 164 H Troponin I 0.050 0.043 Impressions: Chest X-Ray 05/10/17 07:09 IMPRESSION: 1. No acute pulmonary process identified. Qualifiers PATEINT BEING DISCHARGED WITH ANY OF THE FOLLOWING DIAGNOSIS?: No Plan Time Spent: Greater than 30 Minutes - Patient left AMA but attempts were made to assist the patient. Patient was fully aware of what she was doing. She refused treatment and stated why she did. Explained to patient is she ever wanted to be treated she could go to the ED and be given long acting haldol monthly. Patient states she understood.
== END 2017-05-12 10:50 | disposition left against medical advice (07) | DRG 313 ==
LOC: ER 20:55 → EH 05-10 08:35 → 5 05-10 09:30
PROVIDERS: ADMIT Emergency Medicine; ATTEND Emergency Medicine
DX: R07.9 Chest pain, unspecified (principal); F23 Brief psychotic disorder; Z94.0 Kidney transplant status; F25.9 Schizoaffective disorder, unspecified; I10 Essential (primary) hypertension; Z78.1 Physical restraint status; E83.52 Hypercalcemia; E83.42 Hypomagnesemia; Z91.19 Patient's noncompliance with other medical treatment and regimen; Z79.899 Other long term (current) drug therapy
CPT/HCPCS: 36415; 71010; 80048; 80053; 80061; 80307; 81001; 82140; 82550; 83036; 83735; 84100; 84439; 84443; 84484; 85025; 85379; 85610; 85730; 93005; 93010; 93306; 96372; 99285; G8987-GO; G8988-GO; G8989-GO; J0515; J1630; J1631; J3475; J7507

== ENCOUNTER 2017-05-16 22:08 | Emergency (ER) | payer MEDICARE ==
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
[2017-05-17 00:27] LABS: ABSOLUTE EOSINOPHILS # (AUTO) 0.2 10^3/uL (0.0-0.6); ABSOLUTE LYMPHOCYTES (AUTO) 2.4 10^3/uL (0.5-4.7); ABSOLUTE MONOCYTES (AUTO) 0.9 10^3/uL (0.1-1.4); ABSOLUTE NEUT (AUTO) 7.9 10^3/uL (1.7-8.2); BASOPHILS % (AUTO) 0.4 % (0-2); EOSINOPHILS % (AUTO) 1.5 % (0-6); HEMATOCRIT 38.4 % (36.0-47.0); HEMOGLOBIN 12.8 g/dL (12.0-15.5); LYMPHOCYTES % (AUTO) 20.9 % (13-45); MEAN CORPUSCULAR HEMOGLOBIN 29.2 pg (27.0-33.4); MEAN CORPUSCULAR HGB CONC 33.4 g/dL (32.0-36.0); MEAN CORPUSCULAR VOLUME 87 fl (80-97); MONOCYTES % (AUTO) 8.3 % (3-13); RED CELL DISTRIBUTION WIDTH 14.1 % (11.5-14.0); SEGMENTED NEUTROPHILS % (AUTO) 68.9 % (42-78); WHITE BLOOD COUNT 11.4 10^3/uL (4.0-10.5)
[2017-05-17 00:50] LABS: ANION GAP 17 (5-19)
[2017-05-17 00:59] LABS: CREATINE KINASE MB 0.46 ng/mL (<4.55)
[2017-05-17 01:10] LABS: TROPONIN I < 0.012 ng/mL
[2017-05-17 01:59] LABS: ALANINE AMINOTRANSFERASE 35 U/L (9-52); ALBUMIN 4.3 g/dL (3.5-5.0); ALKALINE PHOSPHATASE 92 U/L (38-126); ASPARTATE AMINO TRANSFERASE 19 U/L (14-36); BILIRUBIN,DIRECT 0.5 mg/dL (0.0-0.4); BILIRUBIN,TOTAL 0.7 mg/dL (0.2-1.3); BLOOD UREA NITROGEN 18 mg/dL (7-20); CALCIUM 11.3 mg/dL (8.4-10.2); CARBON DIOXIDE 19 mmol/L (22-30); CHLORIDE 109 mmol/L (98-107); CREATINE KINASE 34 U/L (30-135); CREATININE RESULT 0.65 mg/dL (0.52-1.25); GLUCOSE 88 mg/dL (75-110); LIPASE 95.6 U/L (23-300); SODIUM 144.9 mmol/L (137-145); TOTAL PROTEIN 7.5 g/dL (6.3-8.2)
[2017-05-17 02:10] LABS: ALCOHOL < 10 mg/dL (NONE DETECTED)
[2017-05-17] MEDS ORDERED: OLANZAPINE INJ/PF 10 MG SDV IM ONE (02:11)
[2017-05-17] MEDS ORDERED: ASPIRIN 325 MG TABLET PO ONE (07:17)
--- NOTE | 2017-05-17 10:49 | ER Document Report ---
Doctor's Note Notes: 05/17/17 10:49 Patient has been seen and evaluated resting comfortably no acute distress. Laboratory values previous provider note and vital signs have been evaluated. Patient otherwise looks to be stable for disposition/transfer.
[2017-05-17 11:52] VITALS: BP 150/77
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
--- NOTE | 2017-05-18 06:00 | EKG REPORT ---
SEVERITY:- ABNORMAL ECG - SINUS RHYTHM PROBABLE LEFT VENTRICULAR HYPERTROPHY : Confirmed by: Nadiya Taylor MD 18-May-2017 05:59:27
== END 2017-05-17 11:53 | disposition home or self-care (01) ==
LOC: ER 22:08
DX: I15.0 Renovascular hypertension (principal); R41.0 Disorientation, unspecified; R07.9 Chest pain, unspecified; Z91.14 Patient's other noncompliance with medication regimen; R50.9 Fever, unspecified; R10.9 Unspecified abdominal pain; Z94.0 Kidney transplant status; Z98.84 Bariatric surgery status; I25.10 Atherosclerotic heart disease of native coronary artery without angina pectoris; L40.9 Psoriasis, unspecified; Z78.1 Physical restraint status
CPT/HCPCS: 36415; 80053; 80307; 82550; 82553; 83690; 84484; 85025; 93005; 93010; 99285

== ENCOUNTER 2017-05-29 17:17 | Emergency (ER) | payer MEDICARE ==
[2017-05-29] MEDS ORDERED: NORMAL SALINE 1000 ML 1,000 ML IV ONE (17:39)
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
[2017-05-29 19:24] LABS: ABSOLUTE BASOPHILS # (AUTO) 0.1 10^3/uL (0.0-0.2); ABSOLUTE EOSINOPHILS # (AUTO) 0.1 10^3/uL (0.0-0.6); ABSOLUTE LYMPHOCYTES (AUTO) 2.1 10^3/uL (0.5-4.7); ABSOLUTE NEUT (AUTO) 6.7 10^3/uL (1.7-8.2); BASOPHILS % (AUTO) 0.6 % (0-2); EOSINOPHILS % (AUTO) 1.2 % (0-6); HEMOGLOBIN 12.2 g/dL (12.0-15.5); HGB HCT DIFFERENCE 0.6; LYMPHOCYTES % (AUTO) 21.3 % (13-45); MEAN CORPUSCULAR HEMOGLOBIN 28.7 pg (27.0-33.4); MEAN CORPUSCULAR HGB CONC 33.8 g/dL (32.0-36.0); MEAN CORPUSCULAR VOLUME 85 fl (80-97); MONOCYTES % (AUTO) 9.9 % (3-13); RED BLOOD COUNT 4.26 10^6/uL (3.72-5.28); RED CELL DISTRIBUTION WIDTH 13.9 % (11.5-14.0); WHITE BLOOD COUNT 10.1 10^3/uL (4.0-10.5)
[2017-05-29] MEDS ORDERED: BUSPIRONE HCL 10 MG TABLET PO ONE (19:28)
[2017-05-29 19:44] LABS: ALANINE AMINOTRANSFERASE 43 U/L (9-52); ALBUMIN 3.6 g/dL (3.5-5.0); ALKALINE PHOSPHATASE 98 U/L (38-126); ANION GAP 15 (5-19); ASPARTATE AMINO TRANSFERASE 25 U/L (14-36); BILIRUBIN,DIRECT 0.3 mg/dL (0.0-0.4); BILIRUBIN,TOTAL 0.4 mg/dL (0.2-1.3); BLOOD UREA NITROGEN 11 mg/dL (7-20); CALCIUM 10.5 mg/dL (8.4-10.2); CARBON DIOXIDE 18 mmol/L (22-30); CHLORIDE 107 mmol/L (98-107); CREATININE RESULT 0.82 mg/dL (0.52-1.25); GLUCOSE 114 mg/dL (75-110); POTASSIUM 3.7 mmol/L (3.6-5.0); SODIUM 139.6 mmol/L (137-145); TOTAL PROTEIN 6.3 g/dL (6.3-8.2)
[2017-05-29 19:51] LABS: ALCOHOL < 10 mg/dL (NONE DETECTED)
[2017-05-29] MEDS ORDERED: DIPHENHYDRAMINE HCL 25 MG CAPSULE PO ONE (21:12)
[2017-05-29] MEDS ORDERED: LORAZEPAM INJ 2 MG/1 ML VIAL IM ONE (21:12)
[2017-05-29 21:22] LABS: APPEARANCE,URINE SLIGHTLY-CLOUDY; BILIRUBIN,URINE NEGATIVE (NEGATIVE); CALCIUM OXALATE CRYSTALS,URINE RARE /HPF; GLUCOSE, URINE NEGATIVE (NEGATIVE); KETONES,URINE NEGATIVE (NEGATIVE); LEUKOCYTE ESTERASE,URINE TRACE (NEGATIVE); NITRITE,URINE POSITIVE (NEGATIVE); PROTEIN,URINE NEGATIVE (NEGATIVE); URINE SPECIFIC GRAVITY 1.015; UROBILINOGEN,URINE NEGATIVE mg/dL (<2.0)
[2017-05-29 21:34] LABS: URINE BARBITURATES SCREEN NEGATIVE; URINE METHADONE SCREEN NEGATIVE; URINE OPIATES LOW NEGATIVE; URINE PHENCYCLIDINE SCREEN NEGATIVE
--- NOTE | 2017-05-29 21:34 | EKG REPORT ---
SEVERITY:- ABNORMAL ECG - SINUS RHYTHM LEFT VENTRICULAR HYPERTROPHY : Confirmed by: Stephanie Liao 29-May-2017 21:33:49
[2017-05-29] MEDS ORDERED: BUSPIRONE HCL 10 MG TABLET PO SCH (22:00)
[2017-05-30] MEDS ORDERED: CARVEDILOL 12.5 MG TABLET PO SCH (10:00)
[2017-05-30] MEDS ORDERED: FUROSEMIDE 40 MG TABLET PO SCH (10:00)
[2017-05-30] MEDS ORDERED: MYCOPHENOLATE MOFETIL 250 MG CAPSULE PO SCH (10:00)
[2017-05-30] MEDS ORDERED: HALOPERIDOL 5 MG TABLET PO SCH (10:00)
[2017-05-30] MEDS ORDERED: FAMOTIDINE 20 MG TABLET PO SCH (10:00)
[2017-05-30] MEDS ORDERED: NIFEDIPINE 30 MG TAB.ER.24 PO SCH (10:00)
[2017-05-30] MEDS ORDERED: TACROLIMUS ANHYDROUS 1 MG CAPSULE PO SCH (10:00)
[2017-05-30] MEDS ORDERED: LISINOPRIL 10 MG TABLET PO SCH (10:00)
[2017-05-30] MEDS ORDERED: BENZTROPINE MESYLATE 1 MG TABLET PO SCH (10:00)
[2017-05-30] MEDS ORDERED: CLONIDINE HCL 0.2 MG TABLET PO SCH (10:00)
--- NOTE | 2017-05-30 10:33 | ER Document Report ---
Doctor's Note Notes: 05/30/17 10:31 Rounds: Chart reviewed and patient interviewed. Patient brought in for altered mental status which is a progressiv condition in this patient, having started a couple of years ago, worsening in the past couple of months. Patient is here with her son who brought the patient in because he came home from being deployed and found the patient sitting in the house with all the windows and doors open in the current 40 weather. Patient has been seen here a couple of times in the past and has had a workup for medical cause for her symptoms. That workup included a normal CT scan. Patient has had a kidney transplant and is on antirejection medications. Were not sure if she is taking those medications, but based upon the number of pills she currently has left, it suggests that she is not taking her rejection medications like she supposed to. Her renal function is normal, however. Patient's urine specimen is concerning for possible infection with positive nitrites, 36 WBCs, and +3 bacteria. I have ordered a culture of this urine and will start the patient off on Macrobid. Denilson Givens MD 05/30/17 10:58 Patient is refusing to take her p.o. meds. Therefore, I am giving her an injection of Rocephin 1 g IM instead of the Macrobid. Denilson Givens MD 05/30/17 11:04 Patient now says that she is allergic to Rocephin and claims that she "almost " when she was given that medication before. I am canceling that order and will decide on something else later. Denilson Givens MD 05/30/17 13:35 Talked with patient and tried to talk her into taking her medications. I think she might take her Macrobid. Patient appears to be stable still for transfer or discharge. Denilson Givens MD
[2017-05-30] MEDS ORDERED: NITROFURANTOIN MONOHYD/M-CRYST 100 MG CAPSULE PO ONE ×2 (10:36→14:00)
[2017-05-30] MEDS ORDERED: LIDOCAINE 1% INJ-PF (10 MG/ML) 30 ML SDV INJ ONE (10:46)
[2017-05-30] MEDS ORDERED: CEFTRIAXONE INJ 1000 MG VIAL IM ONE (10:46)
[2017-05-30] MEDS ORDERED: LORAZEPAM INJ 2 MG/1 ML VIAL IM ONE (10:49)
--- NOTE | 2017-05-30 14:51 | PSYCHOLOGICAL NOTE ---
Psych Note - Psych Note Psych Note: per son who returned to [facility] today, mother was found in house with all the windows open, and door open. pt is talking incoherently, skipping topics. son reports mother was admitted to [facility] in [facility] x2 last being approx 2 yrs ago. Patient's son, Rodolfo [phone], reports that he just got home last night from deployment. When he came home the patient was sitting in the house wit priest the windows and doors open. He reports he was to be home the but got home early. He denies being able to contact the patient prior to his arrival because the patient has no phone. He continued to disclose that the patient moved up to [place] because the rest of the family in [place] "can't take it anymore." He reports onset of patient's symptoms was about 2 years ago; "it started with a odd word or say something weird then it started to become more often." He recalls remembering his mother being "odd" and "different" from other mothers when he was younger but never really thought much of it. Attending physician noted possible urinary tract infection and originally prescribed oral antibiotics however patient was refusing to take them. Attending physician changed the order to a Rocephin shot. Patient disclosed to attending nurse she is unable to receive a Rocephin shot because last time "it almost killed me." Clinician conducted chart review and noted on 04/29/2017 the patient's former physician was contacted by the [facility] ED attending physician. "This evening, I got a call back from the patient's former doctor in [place], sveta Guardado at [phone] and he went over the patient's past history and he to says he is never heard of her having any cancer. Patient is a renal transplant patient, 5 or 6 years ago. 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 Patient is . He last saw this patient in August 2016 and she was doing fine. He does not know of any psychiatric disease." Patient is orientated and answers questions with a thought process that is organized and linear. Her communication style is combative and aggressive towards staff and her son. Patient can discuss, with understanding and knowledge, her medications stating the types and times she needs them (too include stating she received "2 cc" in a shot last night; Patient received 2ml Ativan last night), then starts to discuss how she believes she receiving medication "from the air" within seconds. Patient refuses to take any of her medications because they are "not the right medication." She denies thoughts of wanting to harm herself or others. 296.80 (F31.9) unspecified bipolar and related disorder per history R/O 301.83 (F60.3) borderline personality disorder Impression/plan: Patient is recommended to rescind IVC and is considered psychiatrically clear. At that time, it has been determined her presentation is manipulative, consistent with secondary gain and demonstrating a cluster B personality disorder. Patient has been to [facility] 4 times in the last month (04/27- 05/01,05/09-05/12,05/16-05/17 and current visit); patient's psychiatric presentation has been consistent before and after anti-psychotic medications are therapeutic, supporting that this is the patient's baseline. She has reported during past [facility] visits wanting 24-hour care and not wanting to stay in her home. She justified her request for 24 hour care by stating she has medicaid and it is provided. She is medication noncompliant. Currently, it is unclear of the true onset of patient's baseline presentation. Patient's daughter previously has stated that the patient has long psychiatric history while her son states onset was 2 years ago (he does note remembering his mother being odd and different from other mothers when growing up). Patient has inconsistently demonstrated understanding and use of Rwandan; at times insisting she speaks only Portuguese and at other times communicating well in Rwandan. Patient has been provided information for follow up for both psychiatric and medical providers; however, she still has not established medical care in the local area. Patient denies a need for a provider for psychiatric treatment. Patient's son states he is unable to care for the patient, he has been provided resources for additional assistance to include contact information for the [employer] (is noted the patient refused assistance in obtaining a home care provider during a previous visit). While this time the patient is demonstrating strong symptoms of a cluster B personality disorder, it is recommended the patient follow-up with neurology to rule out any medical concerns the patient's son may still have.
[2017-05-30 15:57] VITALS: BP 130/80
== END 2017-05-30 16:00 | disposition home or self-care (01) ==
LOC: ER 17:17
DX: F31.60 Bipolar disorder, current episode mixed, unspecified (principal); F28 Other psychotic disorder not due to a substance or known physiological condition; F60.89 Other specific personality disorders; F25.9 Schizoaffective disorder, unspecified; R41.82 Altered mental status, unspecified; Z94.0 Kidney transplant status; Z79.899 Other long term (current) drug therapy; Z91.14 Patient's other noncompliance with medication regimen
CPT/HCPCS: 93005; 99285; 96372; 36415; 87086; 80307 ×4; 83735; 85025; 87088; 80053; 81001; 87186; 93010; A9270 ×12; J2060 ×2; J7507; J7517; J8499

== ENCOUNTER 2018-04-29 13:51 | Emergency (ER) | payer SELFPAY ==
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
[2018-04-29 15:07] LABS: APPEARANCE,URINE SLIGHTLY-CLOUDY; BILIRUBIN,URINE NEGATIVE (NEGATIVE); COLOR,URINE YELLOW; GLUCOSE, URINE NEGATIVE (NEGATIVE); KETONES,URINE NEGATIVE (NEGATIVE); LEUKOCYTE ESTERASE,URINE TRACE (NEGATIVE); NITRITE,URINE NEGATIVE (NEGATIVE); PROTEIN,URINE NEGATIVE (NEGATIVE); URINE SPECIFIC GRAVITY 1.019; UROBILINOGEN,URINE NEGATIVE mg/dL (<2.0)
[2018-04-29 15:10] LABS: ABSOLUTE BASOPHILS # (AUTO) 0.1 10^3/uL (0.0-0.2); ABSOLUTE EOSINOPHILS # (AUTO) 0.3 10^3/uL (0.0-0.6); ABSOLUTE LYMPHOCYTES (AUTO) 1.6 10^3/uL (0.5-4.7); ABSOLUTE MONOCYTES (AUTO) 0.6 10^3/uL (0.1-1.4); ABSOLUTE NEUT (AUTO) 4.7 10^3/uL (1.7-8.2); BASOPHILS % (AUTO) 0.7 % (0-2); EOSINOPHILS % (AUTO) 3.8 % (0-6); HEMOGLOBIN 12.2 g/dL (12.0-15.5); LYMPHOCYTES % (AUTO) 22.4 % (13-45); MEAN CORPUSCULAR HEMOGLOBIN 29.3 pg (27.0-33.4); MEAN CORPUSCULAR HGB CONC 33.8 g/dL (32.0-36.0); MEAN CORPUSCULAR VOLUME 87 fl (80-97); MONOCYTES % (AUTO) 8.5 % (3-13); PLATELET COUNT 285 10^3/uL (150-450); RED BLOOD COUNT 4.14 10^6/uL (3.72-5.28); RED CELL DISTRIBUTION WIDTH 14.6 % (11.5-14.0); SEGMENTED NEUTROPHILS % (AUTO) 64.6 % (42-78); TOTAL CELLS COUNTED % (AUTO) 100 %; WHITE BLOOD COUNT 7.2 10^3/uL (4.0-10.5)
[2018-04-29 15:29] LABS: URINE AMPHETAMINES SCREEN NEGATIVE; URINE BARBITURATES SCREEN NEGATIVE; URINE BENZODIAZEPINES SCREEN NEGATIVE; URINE COCAINE SCREEN NEGATIVE; URINE MARIJUANA (THC) SCREEN NEGATIVE; URINE METHADONE SCREEN NEGATIVE; URINE PHENCYCLIDINE SCREEN NEGATIVE
[2018-04-29 15:30] LABS: ALANINE AMINOTRANSFERASE 20 U/L (9-52); ALBUMIN 4.1 g/dL (3.5-5.0); ALKALINE PHOSPHATASE 112 U/L (38-126); ANION GAP 14 (5-19); ASPARTATE AMINO TRANSFERASE 22 U/L (14-36); BILIRUBIN,DIRECT 0.1 mg/dL (0.0-0.4); BILIRUBIN,TOTAL 0.4 mg/dL (0.2-1.3); BLOOD UREA NITROGEN 20 mg/dL (7-20); CALCIUM 11.4 mg/dL (8.4-10.2); CARBON DIOXIDE 22 mmol/L (22-30); CHLORIDE 107 mmol/L (98-107); GLUCOSE 86 mg/dL (75-110); POTASSIUM 4.5 mmol/L (3.6-5.0); SODIUM 142.5 mmol/L (137-145); TOTAL PROTEIN 7.7 g/dL (6.3-8.2)
[2018-04-29 15:31] LABS: ACETAMINOPHEN < 10 ug/mL (10-30); ALCOHOL < 10 mg/dL (NONE DETECTED); SALICYLATE < 1.0 mg/dL (2.0-20.0)
--- NOTE | 2018-04-29 16:40 | PSYCHOLOGICAL NOTE ---
Psych Note - Psych Note Date seen by psych provider: 04/29/18 Time seen by psych provider: 15:25 Psych Note: Reason for Consult: IVC 53-year-old female patient emergency department for evaluation. Was placed on involuntary commitment papers by outside provider. Impression/Plan: Patient was put under IVC at the request of Supervisor [employer] during guardianship hearing ([facility] obtained guardianship today). There is concern the patient has hallucinations in addition to being noncompliant with her medications. There has been an increase in behavioral outburst of aggression. While patient was able to carry on a organized linear conversation with clinician, patient is recommended to continue under IVC for observation overnight to ensure patient does not decompensate and is not responding to internal stimuli. Patient will be reevaluated. Dr. Arechiga was consulted and the care and management of this patient; attending physicians in agreement with recommendations and disposition.
[2018-04-29] MEDS ORDERED: LISINOPRIL 5 MG TABLET PO SCH (16:45)
[2018-04-29] MEDS ORDERED: TACROLIMUS ANHYDROUS 1 MG CAPSULE PO SCH (17:00)
[2018-04-29] MEDS ORDERED: MYCOPHENOLATE MOFETIL 250 MG CAPSULE PO SCH (17:00)
[2018-04-29] MEDS: HALOPERIDOL LACTATE INJ 5 MG/1 ML VIAL IM ONE ×2 (17:07→17:59)
[2018-04-29] MEDS: LORAZEPAM INJ 2 MG/1 ML VIAL IM ONE ×2 (17:07→17:59)
--- NOTE | 2018-04-29 18:06 | RADIOLOGY REPORT (SQ) ---
EXAM DESCRIPTION: CT HEAD WITHOUT COMPLETED DATE/TIME: 04/29/2018 5:56 pm REASON FOR STUDY: hallucinating, altered COMPARISON: 04/28/2017. TECHNIQUE: Axial images acquired through the brain without intravenous contrast. Images reviewed wi th bone, brain and subdural windows. Additional sagittal and coronal reconstructions were generated. Images stored on PACS. All CT scanners at this facility use dose modulation, iterative reconstruction, and/or weight based d osing when appropriate to reduce radiation dose to as low as reasonably achievable (ALARA). [facility]: Dose Right [facility]: CareDose [facility]: Dose Right [facility]: Teradose 4D [facility]: Smart Terapio RADIATION DOSE: CT Rad equipment meets quality standard of care and radiation dose reduction techniq ues were employed. CTDIvol: 53.2 mGy. DLP: 964 mGy-cm. mGy. LIMITATIONS: None. FINDINGS: VENTRICLES: Normal size and contour. CEREBRUM: No masses. No hemorrhage. No midline shift. No evidence for acute infarction. Normal gra y/white matter differentiation. No areas of low density in the white matter. CEREBELLUM: No masses. No hemorrhage. No alteration of density. No evidence for acute infarction. EXTRAAXIAL SPACES: No fluid collections. No masses. ORBITS AND GLOBE: No intra- or extraconal masses. Normal contour of globe without masses. CALVARIUM: No fracture. PARANASAL SINUSES: No fluid or mucosal thickening. SOFT TISSUES: No mass or hematoma. OTHER: No other significant finding. IMPRESSION: NORMAL BRAIN CT WITHOUT CONTRAST. EVIDENCE OF ACUTE STROKE: NO. COMMENT: Quality ID # [id number]: Final reports with documentation of one or more dose reduction techniques (e.g., Automated exposure control, adjustment of the mA and/or kV according to patient size, use of iterative reconstruction technique) TECHNICAL DOCUMENTATION: JOB ID: [id number] [employer]- All Rights Reserved Reading location - IP/workstation name: [email or web address]
--- NOTE | 2018-04-29 18:11 | EKG REPORT ---
SEVERITY:- ABNORMAL ECG - SINUS RHYTHM CONSIDER LEFT VENTRICULAR HYPERTROPHY : Confirmed by: Ned Zamora MD 29-Apr-2018 18:11:07
[2018-04-29] MEDS ORDERED: NIFEDIPINE 30 MG TAB.ER.24 PO SCH (19:00)
--- NOTE | 2018-04-30 09:34 | ER Document Report ---
Doctor's Note Notes: 04/30/18 09:32 Rounds: Chart reviewed and patient interviewed. Patient being evaluated for behavior issues. Patient is a lawson of the [facility] in the process of being assisted and evaluated by Adult Protective Services. Patient has a history of a kidney transplant it is supposed to be on immunosuppressive medications, but supposedly is not taking these medicines. However, her renal function is completely normal. All other labs essentially normal as well. Blood pressure acceptable in the 140s. Other vital signs normal. Patient appears to be medically stable for transfer or discharge. This morning, patient is smiling and happy when told that she is ready to leave. Denilson Givens MD
[2018-04-30 09:43] VITALS: BP 131/68
== END 2018-04-30 09:43 | disposition home or self-care (01) ==
LOC: ER 13:51
DX: F30.2 Manic episode, severe with psychotic symptoms (principal); Z94.0 Kidney transplant status; Z91.19 Patient's noncompliance with other medical treatment and regimen; R44.3 Hallucinations, unspecified; I25.10 Atherosclerotic heart disease of native coronary artery without angina pectoris; I10 Essential (primary) hypertension
CPT/HCPCS: 93005; 99285; 36415; 80307 ×4; 85025; 80053; 81001; 82542; 80197; 70450; 93010; J7507; J7517; J1630; J2060

== ENCOUNTER → 2018-08-10 | Outpatient (CLI) | payer MEDICARE, MEDICAID ==
[2018-08-10 13:08] LABS: ABSOLUTE BASOPHILS # (AUTO) 0.1 10^3/uL (0.0-0.2); ABSOLUTE EOSINOPHILS # (AUTO) 0.3 10^3/uL (0.0-0.6); ABSOLUTE LYMPHOCYTES (AUTO) 1.9 10^3/uL (0.5-4.7); ABSOLUTE MONOCYTES (AUTO) 0.7 10^3/uL (0.1-1.4); ABSOLUTE NEUT (AUTO) 5.9 10^3/uL (1.7-8.2); BASOPHILS % (AUTO) 0.7 % (0-2); EOSINOPHILS % (AUTO) 2.9 % (0-6); HEMOGLOBIN 13.1 g/dL (12.0-15.5); LYMPHOCYTES % (AUTO) 21.7 % (13-45); MEAN CORPUSCULAR HEMOGLOBIN 28.9 pg (27.0-33.4); MEAN CORPUSCULAR HGB CONC 34.5 g/dL (32.0-36.0); MEAN CORPUSCULAR VOLUME 84 fl (80-97); MONOCYTES % (AUTO) 7.4 % (3-13); PLATELET COUNT 255 10^3/uL (150-450); RED BLOOD COUNT 4.53 10^6/uL (3.72-5.28); RED CELL DISTRIBUTION WIDTH 14.3 % (11.5-14.0); SEGMENTED NEUTROPHILS % (AUTO) 67.3 % (42-78); TOTAL CELLS COUNTED % (AUTO) 100 %; WHITE BLOOD COUNT 8.8 10^3/uL (4.0-10.5)
[2018-08-10 13:23] LABS: CHOLESTEROL 186.67 mg/dL (0-200); IRON 48.7 ug/dL (37-170); TRIGLYCERIDES 131 mg/dL (<150); URIC ACID 4.9 mg/dL (2.5-7.5)
[2018-08-10 13:33] LABS: DIRECT LDL 108 mg/dL (<100)
[2018-08-10 13:35] LABS: ALANINE AMINOTRANSFERASE 28 U/L (9-52); ALBUMIN 4.2 g/dL (3.5-5.0); ALKALINE PHOSPHATASE 129 U/L (38-126); ANION GAP 11 (5-19); ASPARTATE AMINO TRANSFERASE 23 U/L (14-36); BILIRUBIN,DIRECT 0.2 mg/dL (0.0-0.4); BILIRUBIN,TOTAL 0.4 mg/dL (0.2-1.3); BLOOD UREA NITROGEN 17 mg/dL (7-20); CALCIUM 11.1 mg/dL (8.4-10.2); CARBON DIOXIDE 25 mmol/L (22-30); CHLORIDE 107 mmol/L (98-107); GLUCOSE 80 mg/dL (75-110); POTASSIUM 4.7 mmol/L (3.6-5.0); SODIUM 142.5 mmol/L (137-145); TOTAL PROTEIN 7.5 g/dL (6.3-8.2)
[2018-08-10 14:23] LABS: FOLATE 9.16 ng/mL (>2.76)
== END ==
LOC: OD 11:10
PROVIDERS: ATTEND Internal Medicine
DX: E50.9 Vitamin A deficiency, unspecified (principal); E53.8 Deficiency of other specified B group vitamins; D50.9 Iron deficiency anemia, unspecified; I10 Essential (primary) hypertension; M10.9 Gout, unspecified; E78.5 Hyperlipidemia, unspecified
CPT/HCPCS: 36415; 80053; 80061; 82306; 82607; 82746; 83540; 84443; 84550; 85025

== ENCOUNTER 2018-10-20 20:53 | Emergency (ER) | payer MEDICARE, MEDICAID ==
[2018-10-20 21:40] LABS: APPEARANCE,URINE SLIGHTLY-CLOUDY; BILIRUBIN,URINE NEGATIVE (NEGATIVE); COLOR,URINE YELLOW; GLUCOSE, URINE NEGATIVE (NEGATIVE); KETONES,URINE NEGATIVE (NEGATIVE); LEUKOCYTE ESTERASE,URINE NEGATIVE (NEGATIVE); NITRITE,URINE NEGATIVE (NEGATIVE); PROTEIN,URINE 100 mg/dL (NEGATIVE); URINE SPECIFIC GRAVITY 1.026; UROBILINOGEN,URINE NEGATIVE mg/dL (<2.0)
[2018-10-20 21:48] LABS: URINE AMPHETAMINES SCREEN NEGATIVE; URINE BARBITURATES SCREEN NEGATIVE; URINE BENZODIAZEPINES SCREEN NEGATIVE; URINE COCAINE SCREEN NEGATIVE; URINE MARIJUANA (THC) SCREEN NEGATIVE; URINE METHADONE SCREEN NEGATIVE; URINE PHENCYCLIDINE SCREEN NEGATIVE
[2018-10-20 21:50] LABS: ABSOLUTE BASOPHILS # (AUTO) 0.1 10^3/uL (0.0-0.2); ABSOLUTE EOSINOPHILS # (AUTO) 0.3 10^3/uL (0.0-0.6); ABSOLUTE MONOCYTES (AUTO) 0.6 10^3/uL (0.1-1.4); ABSOLUTE NEUT (AUTO) 4.5 10^3/uL (1.7-8.2); BASOPHILS % (AUTO) 1.2 % (0-2); EOSINOPHILS % (AUTO) 4.3 % (0-6); HEMATOCRIT 36.5 % (36.0-47.0); HEMOGLOBIN 12.4 g/dL (12.0-15.5); LYMPHOCYTES % (AUTO) 26.7 % (13-45); MEAN CORPUSCULAR HEMOGLOBIN 28.5 pg (27.0-33.4); MEAN CORPUSCULAR VOLUME 84 fl (80-97); MONOCYTES % (AUTO) 8.4 % (3-13); PLATELET COUNT 233 10^3/uL (150-450); RED BLOOD COUNT 4.35 10^6/uL (3.72-5.28); RED CELL DISTRIBUTION WIDTH 13.8 % (11.5-14.0); SEGMENTED NEUTROPHILS % (AUTO) 59.4 % (42-78); TOTAL CELLS COUNTED % (AUTO) 100 %; WHITE BLOOD COUNT 7.5 10^3/uL (4.0-10.5)
--- NOTE | 2018-10-20 22:06 | ER Document Report ---
ED General - General Chief Complaint: Psych Problem Stated Complaint: PSYCH Time Seen by Provider: 10/20/18 22:04 Primary Care Provider: JONI WHITNEY MD [ACTIVE STAFF] - Follow up as needed Notes: Patient is a 53-year-old female who was brought in on involuntary commitment paperwork by [facility]. She is a lawson of the [facility]. She has history kidney transplant has not been taking her kidney transplant medications. She does admit that they are at the pharmacy and she has not picked them up. She will not tell me why she has not picked them up. She says that she is fine and can go home however hurt and found to come in paperwork says that she is been hallucinating and then also tried to jump out of the car today. Patient says she has not been taking any of her mental health medications. She denies any recent fevers or infections. She denies any recent difficulty urinating. No other complaints at this time. TRAVEL OUTSIDE OF THE [place] IN LAST 30 DAYS: No - Related Data Allergies/Adverse Reactions: ceftriaxone [From Rocephin] Adverse Reaction (Verified 05/30/17 15:06) Past Medical History - Social History Smoking Status: Never Smoker Chew tobacco use (# tins/day): No Frequency of alcohol use: None Drug Abuse: None Family History: Reviewed & Not Pertinent Patient has suicidal ideation: No Patient has homicidal ideation: No - Past Medical History Cardiac Medical History: Reports: Hx Coronary Artery Disease, Hx Hypertension Denies: Hx Congestive Heart Failure Renal/ Medical History: Denies: Hx Peritoneal Dialysis Psychiatric Medical History: Reports: Hx Schizoaffective Disorder Denies: Hx Depression Past Surgical History: Reports: Hx Kidney (Renal Surgery) - kidney transplant, Other - Kidney transplant probably in 2010 and [facility] - Immunizations Hx Diphtheria, Pertussis, Tetanus Vaccination: - unknown Review of Systems - Review of Systems Notes: My Normal Review Basic REVIEW OF SYSTEMS: CONSTITUTIONAL : Denies fever, chills, or sweats. Denies recent illness. EENT: Denies eye, ear, throat, or mouth pain or symptoms. Denies nasal or sinus congestion. RESPIRATORY: Denies cough, cold, or chest congestion. Denies shortness of breath, difficulty breathing, or wheezing. GASTROINTESTINAL: Denies abdominal pain. Denies nausea, vomiting, or diarrhea. GENITOURINARY: Denies difficulty urinating, painful urination, burning, frequency, or blood in urine. MUSCULOSKELETAL: Denies neck or back pain or joint pain or swelling. SKIN: Denies rash or skin lesions. NEUROLOGICAL: Denies altered mental status or loss of consciousness. Denies headache. PSYCHIATRIC: hallucinations ALL OTHER SYSTEMS REVIEWED AND NEGATIVE. Physical Exam - Notes Notes: General Appearance: Well nourished, alert, cooperative, no acute distress, no obvious discomfort. Well-appearing. Vitals: reviewed, See vital signs table. Head: no swelling or tenderness to the head Eyes: PERRL, EOMI, Conjuctiva clear Mouth: No decreasd moisture Lungs: No wheezing, No rales, No rhonci, No accessory muscle use, good air exchange bilaterally. Heart: Normal rate, Regular rythm, No murmur, no rub Abdomen: Normal BS, soft, No rigidity, No abdominal tenderness, No guarding, no rebound, no abdominal masses, no organomegaly Extremities: strength 5/5 in all extremities, good pulses in all extremities, no swelling or tenderness in the extremities, no edema. Skin: warm, dry, appropriate color, no rash Neuro: speech clear, oriented x 3, normal affect, responds appropriately to questions. Course - Re-evaluation Re-evalutation: 10/21/18 04:23 Patient is medically stable for psychiatric evaluation. I have not ordered patient's medications as I do not know exactly which medications she is on. She would not tell me exactly which medication she supposed to take. We do have an old medication list from over a year ago however I do not know if these are accurate. We will have to contact her pharmacy or guardian in the morning to figure out exactly medications she supposed to take due to her kidney transplant. 10/21/18 04:23 - Laboratory Result Diagrams: 10/20/18 21:39 10/20/18 21:39 Laboratory results interpreted by me: 10/20/18 10/20/18 21:15 21:39 Chloride 109 H Carbon Dioxide 21 L Glucose 127 H Calcium 11.1 H Urine Protein 100 H Urine Blood SMALL H Salicylates < 1.0 L Acetaminophen < 10 L - EKG Interpretation by Me Additional EKG results interpreted by me: 10/20/18 22:06 EKG is reviewed and interpreted by me. EKG shows sinus tachycardia with a rate of [address] segment elevation or depression. No ischemic T wave inversions. TX interval, QRS duration, QT intervals are within normal range. Discharge - Discharge Clinical Impression: Noncompliance with medications, Hallucinations Condition: Stable Disposition: PSYCH HOSP/UNIT Referrals: JONI WHITNEY MD [ACTIVE STAFF] - Follow up as needed
[2018-10-20 22:10] LABS: ALANINE AMINOTRANSFERASE 24 U/L (9-52); ALBUMIN 3.9 g/dL (3.5-5.0); ALCOHOL < 10 mg/dL (NONE DETECTED); ALKALINE PHOSPHATASE 118 U/L (38-126); ANION GAP 10 (5-19); ASPARTATE AMINO TRANSFERASE 19 U/L (14-36); BILIRUBIN,DIRECT 0.2 mg/dL (0.0-0.4); BILIRUBIN,TOTAL 0.2 mg/dL (0.2-1.3); BLOOD UREA NITROGEN 20 mg/dL (7-20); CALCIUM 11.1 mg/dL (8.4-10.2); CARBON DIOXIDE 21 mmol/L (22-30); CHLORIDE 109 mmol/L (98-107); GLUCOSE 127 mg/dL (75-110); SODIUM 140.3 mmol/L (137-145); TOTAL PROTEIN 7.5 g/dL (6.3-8.2)
[2018-10-20 22:11] LABS: ACETAMINOPHEN < 10 ug/mL (10-30); SALICYLATE < 1.0 mg/dL (2.0-20.0)
--- NOTE | 2018-10-21 10:10 | ER Document Report ---
Doctor's Note Notes: 10/21/18 10:08 Rounds: Chart reviewed and patient interviewed. Patient is being evaluated for hallucinations, having jumped out of a moving car, and noncompliance with her medications. Has a history of her renal transplant. Lab studies are all essentially normal, including a creatinine of 0.78 and a BUN of 20. vital signs are also normal. Patient appears to be medically stable for transfer or discharge. Ly Givens MD
[2018-10-21] MEDS: TACROLIMUS ANHYDROUS 1 MG CAPSULE PO SCH (17:29)
--- NOTE | 2018-10-21 23:15 | EKG REPORT ---
SEVERITY:- ABNORMAL ECG - SINUS TACHYCARDIA LEFT VENTRICULAR HYPERTROPHY : Confirmed by: Stephanie Liao 21-Oct-2018 23:15:27
[2018-10-22] MEDS: TACROLIMUS ANHYDROUS 1 MG CAPSULE PO SCH (09:56)
--- NOTE | 2018-10-22 09:57 | ER Document Report ---
Doctor's Note Notes: 10/22/18 09:56 Rounds: Chart reviewed and patient interviewed. Patient is awaiting placement for her mental condition. She has been stable since arriving here. She had a kidney transplant. Her renal function was normal on her admission labs. All labs were essentially normal. Vital signs have been normal, as well. Ar rangements are trying to be made to get this patient's kidney medication so that she can be placed in a facility longer term. Patient appears to be medically stable for transfer or discharge. Ly Givens MD
[2018-10-22 17:49] VITALS: BP 159/94
[2018-10-22] MEDS ORDERED: ZIPRASIDONE MESYLATE INJ/PF 20 MG SDV IM ONE (17:52)
== END 2018-10-22 18:18 ==
LOC: ER 20:53
DX: Z91.14 Patient's other noncompliance with medication regimen (principal); R44.3 Hallucinations, unspecified; I25.10 Atherosclerotic heart disease of native coronary artery without angina pectoris; I10 Essential (primary) hypertension; Z79.899 Other long term (current) drug therapy
CPT/HCPCS: 93005; 99285; 96372; 36415; 80307 ×4; 85025; 80053; 81001; 93010; J3486; A9270 ×2; J7507